=== PATIENT | male | born 1970 | race Caucasian/White ===

== ENCOUNTER 2023-06-20 17:29 | Emergency (ER) | payer SELFPAY ==
--- NOTE | 2023-06-20 19:17 | RAD REPORT ---
EXAM DESCRIPTION: US - Abdomen Exam Limited - 06/20/2023 7:05 pm CLINICAL HISTORY: ABD PAIN COMPARISON: No comparisons TECHNIQUE: Sonographic grayscale and color flow images of the right upper abdominal quadrant were obtained. FINDINGS: The gallbladder demonstrates no gallstones. No pericholecystic fluid or gallbladder wall t hickening. The common bile duct is normal measuring 3 mm. The liver demonstrates no findings of intrahepatic biliary dilatation. IMPRESSION: Normal right upper quadrant ultrasound.
[2023-06-20] MEDS ORDERED: MORPHINE 4 MG/ML SYR ONE (19:38)
[2023-06-20] MEDS ORDERED: ONDANSETRON 4 MG/2 ML VIAL ONE (19:38)
[2023-06-20] MEDS ORDERED: NA CHLORIDE 0.9% 1,000 ML ONE (19:38)
[2023-06-20 19:54] LABS: Absolute Lymphocytes (CBC) 2.9 K/uL (0.7-4.9); Lymphocytes % 26.3 % (15.3-44.8); MCV 87.9 fL (80-100); MPV 7.8 fL (7.6-11.3); Platelets 319 thou/uL (152-406); RBC Red Blood Cell Count 5.11 M/uL (4.33-5.43)
[2023-06-20 20:07] LABS: Specific Gravity > 1.030 (1.005-1.030); Urine Bacteria None Seen /HPF (<20); Urine Bilirubin NEGATIVE (Negative); Urine Blood Negative (Negative); Urine Clarity Extremely Turbid (Clear); Urine Color Yellow (Yellow); Urine Glucose NEGATIVE (Negative); Urine Mucus 4+ /HPF (None Seen); Urine Protein 1+ (Negative); Urine RBC <5 /HPF (None Seen); Urine Urobilinogen 2+ (Normal); Urine pH 5.5 (5.0-7.0)
[2023-06-20 20:19] LABS: Albumin 3.3 g/dL (3.4-5.0); Bilirubin Total 0.7 mg/dL (0.2-1.0); Potassium 3.8 mEq/L (3.5-5.1); Protein, Total 7.2 g/dL (6.4-8.2)
--- NOTE | 2023-06-20 21:12 | RAD REPORT ---
EXAM DESCRIPTION: CT - Abdomen Pelvis W Contrast - 06/20/2023 8:36 pm CLINICAL HISTORY: ABD PAIN COMPARISON: No comparisons TECHNIQUE: Thin cut axial CT imaging of the abdomen and pelvis was performed following intravenous a dministration of 100 mL Isovue 300. Multiplanar reformats were generated and reviewed. All CT scans are performed using dose optimization technique as appropriate and may include automated exposure control or mA/KV adjustment according to patient size. FINDINGS: No suspicious findings in the lung bases. The liver, spleen, adrenal glands, and pancreas show no suspicious findings. Gallbladder and biliary tree are also without suspicious finding. Symmetric renal function is seen with no hydronephrosis or suspicious renal mass. Segmental distal small bowel dilation, with segments of mucosal hyperenhancement along the nondistend ed loops. No focal transition point. No free air, free fluid or inflammatory stranding. No hernia, ma ss or bulky lymphadenopathy. The urinary bladder is suboptimally distended limiting evaluation, with mild wall prominence favored to relate to nondistention. No suspicious bony findings. IMPRESSION: Findings suggestive of small bowel ileus with segments of mucosal small bowel hyperenhan cement along the nondistended loops, suggestive of enteritis.
--- NOTE | 2023-06-20 21:32 | EDPHYS ---
Physician Documentation [facility] Name: Flaco Duarte Age: 52 yrs Sex: Male : 1970 Arrival Date: 06/20/2023 Time: 17:29 Bed 26 Private MD: ED Physician Eleazar Galarza HPI: 06/20 18:28 This 52 yrs old Male presents to ER via Ambulatory with complaints of Abdominal Pain, rt Nausea. 18:28 Patient presents to the ED with epigastric to right upper quadrant pain for the past rt week. Initially started after eating pizza. The patient states that the pain was originally intermittent in nature, now is constant. He reports some nausea with vomiting, denies hematemesis, hematochezia, melena. Denies other acute complaints at this time, symptoms are moderate in severity, aching nature, nonradiating, no other aggravating or elevating factors.. Historical: - Allergies: 18:00 No Known Allergies; mb9 - Home Meds: 18:00 Depakote Oral [Active]; mb9 - PMHx: 18:00 Bipolar disorder; mb9 - PSHx: 18:00 None; mb9 - Immunization history:: Adult Immunizations up to date. - Social history:: Smoking status: Patient reports the use of cigarette tobacco products, smokes one pack cigarettes per day. - Family history:: not pertinent. ROS: 18:28 Constitutional: Negative for fever, chills, and weight loss, Cardiovascular: Negative rt for chest pain, palpitations, and edema, Respiratory: Negative for shortness of breath, cough, wheezing, and pleuritic chest pain, Back: Negative for injury and pain, MS/Extremity: Negative for injury and deformity, Skin: Negative for injury, rash, and discoloration, Neuro: Negative for headache, weakness, numbness, tingling, and seizure, Psych: Negative for depression, anxiety, suicide ideation, homicidal ideation, and hallucinations, 18:28 Abdomen/GI: Positive for abdominal pain, nausea and vomiting, Exam: 18:28 Constitutional: This is a well developed, well nourished patient who is awake, alert, rt and in no acute distress. Head/Face: Normocephalic, atraumatic. Chest/axilla: Normal chest wall appearance and motion. Nontender with no deformity. No lesions are appreciated. Cardiovascular: Regular rate and rhythm with a normal S1 and S2. No gallops, murmurs, or rubs. Normal PMI, no JVD. No pulse deficits. Respiratory: Lungs have equal breath sounds bilaterally, clear to auscultation and percussion. No rales, rhonchi or wheezes noted. No increased work of breathing, no retractions or nasal flaring. Skin: Warm, dry with normal turgor. Normal color with no rashes, no lesions, and no evidence of cellulitis. MS/ Extremity: Pulses equal, no cyanosis. Neurovascular intact. Full, normal range of motion. Neuro: Awake and alert, GCS 15, oriented to person, place, time, and situation. Cranial nerves II-XII grossly intact. Motor strength 5/5 in all extremities. Sensory grossly intact. Cerebellar exam normal. Normal gait. Psych: Awake, alert, with orientation to person, place and time. Behavior, mood, and affect are within normal limits. 18:28 Abdomen/GI: Tenderness to the epigastrium, right upper quadrant without rebound, guarding, distention, Vital Signs: 17:57 BP 137 / 99; Pulse 88; Resp 16; Temp 97.7; Pulse Ox 100% ; Weight 104.33 kg; Height 5 mb9 ft. 11 in. ; Pain 9/10; 19:34 BP 128 / 92; Pulse 58; Resp 16 S; Pulse Ox 99% on R/A; cm10 20:15 BP 117 / 76; Pulse 60; Resp 16 S; Pulse Ox 98% on R/A; cm10 21:30 BP 114 / 86; Pulse 53; Resp 18 S; Pulse Ox 100% on R/A; cm10 17:57 Body Mass Index 32.08 (104.33 kg, 180.34 cm) mb9 17:57 Pain Scale: Adult mb9 MDM: 18:04 Patient medically screened. rt 21:47 Differential diagnosis: Ileus, bowel obstruction, pancreatitis, cholecystitis. Data rt reviewed: vital signs, nurses notes, lab test result(s), radiologic studies. Consideration of Admission/Observation Escalation of care including admission/observation considered. Recommended patient be admitted to the hospital for ileus, he states that he strongly does not wish to in the hospital, will prescribe Reglan. Patient is his risk and benefits, has decision-making capacity. Return for worsening symptoms or he changes his mind regarding admission.. I considered the following discharge prescriptions or medication management in the emergency department Medications were administered in the Emergency Department. See MAR. Independent interpretation of the following test(s) in the Emergency Department CT Scan: My interpretation is No cholelithiasis, interpretation of CT scan images. Counseling: I had a detailed discussion with the patient and/or guardian regarding the historical points, exam findings, and any diagnostic results supporting the discharge/admit diagnosis, lab results, radiology results. Response to treatment: the patient's symptoms have markedly improved after treatment. 06/20 18:05 Order name: CBC with Diff; Complete Time: 20:30 rt 06/20 18:05 Order name: CMP; Complete Time: 20:30 rt 06/20 18:05 Order name: Lipase; Complete Time: 20:30 rt 06/20 18:05 Order name: Urinalysis w/ reflexes; Complete Time: 20:30 rt 06/20 18:05 Order name: CT Abd/Pelvis - IV Contrast Only; Complete Time: 21:15 rt 06/20 18:05 Order name: US Abdomen Limited; Complete Time: 20:30 rt 06/20 18:06 Order name: IV Saline Lock; Complete Time: 19:44 rt 06/20 18:06 Order name: Labs collected and sent; Complete Time: 19:44 rt Administered Medications: 19:44 Drug: NS 0.9% IV 1000 ml IV at 1 bolus Per protocol; 1000 mL bolus Route: IV; Rate: 1 cm10 bolus; Site: left antecubital; 21:39 Follow up: Response: No adverse reaction; IV Status: Completed infusion; IV Intake: cm10 1000ml 19:44 Drug: Ondansetron IVP 4 mg IVP once; over 2 minutes Route: IVP; Site: left antecubital; cm10 21:39 Follow up: Response: No adverse reaction cm10 19:44 Drug: morphine IVP or IV 4 mg IVP once over 4 mins Route: IVP; Infused Over: 4 mins; cm10 Site: left antecubital; 21:39 Follow up: Response: No adverse reaction cm10 Disposition Summary: 06/20/23 21:32 Discharge Ordered Notes: Location: Home rt Problem: new rt Symptoms: have improved rt Condition: Stable rt Diagnosis - Ileus, unspecified rt Followup: rt - With: Leon, Obed, MD - When: 2 - 3 days - Reason: Discharge Instructions: - Discharge Summary Sheet rt - Ileus rt Forms: - Medication Reconciliation Form rt - Thank You Letter rt - Antibiotic Education rt - Prescription Opioid Use rt - Patient Portal Instructions rt - Leadership Thank You Letter rt Prescriptions: - Reglan 10 mg Oral Tablet - take 1 tablet ORAL route every 6 hours take 30 minutes before meals and at rt bedtime; 20 tablet; Refills: 0, Product Selection Permitted Signatures: Dispatcher [employer] Ileana Roberts RN RN mb9 Eleazar Galarza MD MD rt Maylin Camarillo RN RN cm10 Corrections: (The following items were deleted from the chart) 18:00 18:00 PMHx: None; sekou mb9
--- NOTE | 2023-06-20 21:32 | ER ---
Nurse's Notes [facility] Name: Flaco Duarte Age: 52 yrs Sex: Male : 1970 Arrival Date: 06/20/2023 Time: 17:29 Bed 26 Private MD: Diagnosis: Ileus, unspecified Presentation: 06/20 17:57 Chief complaint: Patient states: "For the past week, my stomach feels like someone is mb9 twisting it. I can't lay down or get comfortable. I've been vomiting and feel nauseous. it's tender all over". Coronavirus screen: Vaccine status: Patient reports receiving the 2nd dose of the covid vaccine. Ebola Screen: No symptoms or risks identified at this time. Initial Sepsis Screen: Does the patient meet any 2 criteria? No. Patient's initial sepsis screen is negative. Does the patient have a suspected source of infection? No. Patient's initial sepsis screen is negative. Risk Assessment: Do you want to hurt yourself or someone else? Patient reports no desire to harm self or others. Onset of symptoms was 2022. 17:57 Method Of Arrival: Ambulatory [facility] 17:57 Acuity: DEYSI 3 mb9 Triage Assessment: 18:00 General: Appears uncomfortable, Behavior is cooperative. Pain: Complains of pain in mb9 abdomen Pain does not radiate. Pain currently is 9 out of 10 on a pain scale. Quality of pain is described as throbbing, Is continuous, Aggravated by eating, drinking. EENT: No signs and/or symptoms were reported regarding the EENT system. Neuro: Islas Agitation-Sedation Scale (RASS): 0 - Alert and Calm Level of Consciousness is awake, alert, obeys commands, Oriented to person, place, time, situation, Appropriate for age. Cardiovascular: Patient's skin is warm and dry. Respiratory: Airway is patent Respiratory effort is even, unlabored, Respiratory pattern is regular, symmetrical. GI: Abdomen is round distended, Abd is soft Abdomen is tender to palpation in right upper quadrant and left upper quadrant. : No signs and/or symptoms were reported regarding the genitourinary system. Derm: Skin is pink, warm \\T\\ dry. Musculoskeletal: Range of motion: intact in all extremities. Historical: - Allergies: 18:00 No Known Allergies; mb9 - Home Meds: 18:00 Depakote Oral [Active]; mb9 - PMHx: 18:00 Bipolar disorder; mb9 - PSHx: 18:00 None; mb9 - Immunization history:: Adult Immunizations up to date. - Social history:: Smoking status: Patient reports the use of cigarette tobacco products, smokes one pack cigarettes per day. - Family history:: not pertinent. Screenin:14 [facility] ED Fall Risk Assessment (Adult) History of falling in the last 3 months, cm10 including since admission No falls in past 3 months (0 pts) Confusion or Disorientation No (0 pts) Intoxicated or Sedated No (0 pts) Impaired Gait No (0 pts) Mobility Assist Device Used No (0 pt) Altered Elimination No (0 pt) Score/Fall Risk Level 0 - 2 = Low Risk Oriented to surroundings, Maintained a safe environment, Hourly rounding (assess needs \\T\\ fall precautionary measures) done. Abuse screen: Denies threats or abuse. Denies injuries from another. Nutritional screening: No deficits noted. Tuberculosis screening: No symptoms or risk factors identified. Assessment: 18:01 Reassessment: see triage assessment. mb9 20:14 Reassessment: Patient appears in no apparent distress at this time. Patient and/or cm10 family updated on plan of care and expected duration. Pain level reassessed. Patient is alert, oriented x 3, equal unlabored respirations, skin warm/dry/pink. 21:27 Reassessment: Dr. Galarza speaking with patient in regards to admission and pt cm10 states that he would like to go home. 21:38 Reassessment: Patient appears in no apparent distress at this time. Patient and/or cm10 family updated on plan of care and expected duration. Pain level reassessed. Patient is alert, oriented x 3, equal unlabored respirations, skin warm/dry/pink. Patient states feeling better. Patient states symptoms have improved. Vital Signs: 17:57 BP 137 / 99; Pulse 88; Resp 16; Temp 97.7; Pulse Ox 100% ; Weight 104.33 kg; Height 5 mb9 ft. 11 in. ; Pain 9/10; 19:34 BP 128 / 92; Pulse 58; Resp 16 S; Pulse Ox 99% on R/A; cm10 20:15 BP 117 / 76; Pulse 60; Resp 16 S; Pulse Ox 98% on R/A; cm10 21:30 BP 114 / 86; Pulse 53; Resp 18 S; Pulse Ox 100% on R/A; cm10 17:57 Body Mass Index 32.08 (104.33 kg, 180.34 cm) mb9 17:57 Pain Scale: Adult mb9 ED Course: 17:32 Patient arrived in ED. im 17:38 Eleazar Galarza MD is Attending Physician. rt 17:59 Triage completed. mb9 17:59 Arm band placed on. mb9 19:07 US Abdomen Limited In Process Unspecified. EDMS 19:22 Maylin Camarillo, ISHA is Primary Nurse. cm10 19:45 CBC with Diff Sent. cm10 19:45 CMP Sent. cm10 19:45 Lipase Sent. cm10 19:45 Urinalysis w/ reflexes Sent. cm10 19:45 Initial lab(s) drawn, by pr, sent to lab. Urine collected: clean catch specimen. cm10 Inserted saline lock: 20 gauge in left antecubital area, using aseptic technique. Blood collected. Missed attempt(s): 20 gauge in right antecubital area. Bleeding controlled, band aid applied, catheter tip intact. 20:14 Patient has correct armband on for positive identification. Bed in low position. Call cm10 light in reach. Side rails up X2. Provided Education on: ER process and procedures. . 20:38 CT Abd/Pelvis - IV Contrast Only In Process Unspecified. EDMS 20:[address]. cm10 21:27 ED physician to see patient. cm10 21:31 Obed Leon MD is Referral Physician. rt 21:51 No provider procedures requiring assistance completed. IV discontinued, intact, cm10 bleeding controlled, No redness/swelling at site. Administered Medications: 19:44 Drug: NS 0.9% IV 1000 ml IV at 1 bolus Per protocol; 1000 mL bolus Route: IV; Rate: 1 cm10 bolus; Site: left antecubital; 21:39 Follow up: Response: No adverse reaction; IV Status: Completed infusion; IV Intake: cm10 1000ml 19:44 Drug: Ondansetron IVP 4 mg IVP once; over 2 minutes Route: IVP; Site: left antecubital; cm10 21:39 Follow up: Response: No adverse reaction cm10 19:44 Drug: morphine IVP or IV 4 mg IVP once over 4 mins Route: IVP; Infused Over: 4 mins; cm10 Site: left antecubital; 21:39 Follow up: Response: No adverse reaction cm10 Medication: 20:14 VIS not applicable for this client. cm10 Intake: 21:39 IV: 1000ml; Total: 1000ml. cm10 Outcome: 21:32 Discharge ordered by . rt 21:51 Discharged to home via wheelchair, with friend, cm10 21:51 Condition: good 21:51 Discharge instructions given to patient, Instructed on discharge instructions, follow up and referral plans. medication usage, Demonstrated understanding of instructions, follow-up care, medications, Prescriptions given X 1, 21:52 Patient left the ED. cm10 Signatures: Dispatcher [employer] Ileana Roberts RN RN Eleazar Hinojosa MD MD rt Yesenia Todd Clarissa, RN RN cm10 Corrections: (The following items were deleted from the chart) 18:00 18:00 PMHx: None; sekou sapp
[2023-06-20 23:40] VITALS: TEMP 97.7
[2023-06-20 23:53] VITALS: BP 114/86; O2SAT 100
== END 2023-06-20 21:52 | disposition home or self-care (01) ==
LOC: ER 17:29
DX: K56.7 Ileus, unspecified (principal)
CPT/HCPCS: 36415; 74177; 76705; 80053; 81001; 83690; 85025; 96361; 96374; 96375; 99285; J2405; J7030; Q9967

== ENCOUNTER 2024-08-03 10:53 | Emergency (ER) | payer OTHER ==
--- OUTSIDE RECORDS SUMMARY | 2024-08-03 10:56 | XMS REPORT | Continuity of Care Document ---
Author Name Unknown Address [address] [facility] [address] [place] [address] [facility] thconnect Address [address] [facility] 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 Phone MD YASIR WALL Primary Care Physician KIRIT LINTON Attending Clinician UnavailGRACIE Tripathi Attending Clinician Unavailab DONAL Quiroz Attending Clinician Unavailable AMBREEN_FARHANA Attending Clinician Unavailable KIRSTIE AUSTIN Attending Clinician Unavailable MILLY TAMAYO Attending Clinician Unavailable AMBREEN_FARHANA Admitting Clinician Unavailable Payers Payer Name Policy Type Policy Number Effective Date Expirati on Date Source Problems Condition Name Condition Details Condition Category Status Onset Date Resolution Date Last Treatment Date Treating Clinician Comments Source Abdominal pain Problem [facility] Dental caries Problem [facility] Depression Problem [facility] Foreign body of right cornea Problem [facility] Infected dental caries Problem [facility] Laceration of multiple sites of upper extremity [facility] Lightheade dness [facility] Methamphet amine abuse Problem [facility] Nausea Problem [facility] Lung nodule Problem [facility] Allergies, Adverse Reactions, Alerts Allergy Name Allergy Type Status Severity Reaction(s) Onset Date Inactive Date Treating Clinician Comments Source No known drug allergy Nixon neo allergy Active 11-17 00:00: 00 [facility] Social History Social Habit Start Date Stop Date Quantity Comments Source History of tobacco use [facility] Smoking Status Start Date Stop Date Source Smokes tobacco daily (finding) 2019-03-01 14:00:00 [facility] Medications Ordered Medication Name Filled Medication Name Start Date Stop Date Current Medication? Ordering Clinician Indication Dosage Frequency Signature (SIG) Comments Components Source Omeprazole (Omeprazole 20 Mg *) [address] Omeprazole (Omeprazole 20 Mg *) [address] 03-12 13:28: 00 Yes 1 [facility] Amoxicillin /Clavulanat e Potassium (Augmentin *) 875 Mg TAB Amoxicillin /Clavulanat e Potassium (Augmentin *) 875 Mg TAB 03-01 14:09: 00 Yes 1 [facility] Vital Signs Vital Name Observation Time Observation Value Comments S ource Weight 2024-06-17 17:15:00 94.571475 kg [facility] BMI (Body Mass Index) 2024-06-17 17:15:00 29.0 kg/m2 [facility] Height 2024-06-17 17:15:00 180.218532 cm [facility] Encounters Start Date/Time End Date/Time Encounter Type Admission Type Attending Clinicians Care Facility Care Department Encounter ID Source 2023-08-16 16:22:26 Inpatient [facility] [id number] [facility] 2023-02-09 10:29:36 Inpatient [facility] [id number] [facility] 2023-01-25 09:41:28 Inpatient [facility] [id number] [facility] 2022-12-02 13:15:43 Inpatient [facility] [id number] [facility] 2022-06-14 14:30:03 Inpatient [facility] [id number] [facility] 2022-06-10 10:32:38 Inpatient [facility] [id number] [facility] 2022-03-29 14:57:51 Inpatient [facility] [id number] [facility] 2024-06-17 17:02:00 2024-06-17 19:20:00 Emergency ER KIRIT LINTON [facility] [id number] [facility] 2024-06-17 17:02:00 2024-06-17 19:20:00 Departed Emergency Room [facility] [id number] [facility] 2024-03-12 10:51:00 2024-03-12 13:35:00 Emergency ER GRACIE CURTIS [facility] [id number] [facility] 2023-09-20 13:07:00 2023-09-20 13:07:00 Outpatient SELF/OTHER INDIVIDUAL DONAL QUINN [facility] [id number] [facility] 2022-01-01 09:31:00 2022-01-01 09:31:00 Outpatient AMBREEN_DERRELL BEE [facility] [id number] [facility] 2019-03-01 13:50:00 2019-03-01 15:02:00 Emergency ER NORMAN RUKHSANARonda [facility] [id number] [facility] 2017-12-16 15:43:00 2017-12-16 23:40:00 Emergency ER KIRSTIE AUSTIN [facility] [id number] [facility] 2015-09-24 18:18:00 2015-09-24 20:43:00 Emergency ER MILLY TAMAYO [facility] [id number] [facility] Results Test Description Test Time Test Comments Results Result Co mments Source [facility] CtrUrine examination for white blood cells (WBC) 2024-06-17 18:18:00* Test Item Value Reference Range Interpretation Comme nts Urine WBC (test code = 406181463) 0-2 [facility] CtrAutomated epithelial cells count in urine sediment (number/area)2024-06-17 18:18:00* Test Item Value Reference Range Interpretation Comme nts Urine Epithelial Cells (test code = 42803-3) 0-2 [facility] CtrBacteria detection in urine sediment by light kjfmgyqjap6783-89-64 18:18:00* Test Item Value Reference Range Interpretation Comme nts Urine Bacteria (test code = 26919-9) None Seen [facility] CtrUrine casts detection by automated method 2024-06-17 18:18:00* Test Item Value Reference Range Interpretation Comme nts Urine Casts (test code = 26268-8) 0-2 [facility] CtrColor of Urine by [id number] 18:13:00* Test Item Value Reference Range Interpretation Comme nts Urine Color (test code = 67162-3) Yellow [facility] CtrAppearance of [id number] 18:13:00* Test Item Value Reference Range Interpretation Comme nts Urine Appearance (test code = 5767-9) Clear [facility] xmzavgzgr5617-59-65 18:13:00* Test Item Value Reference Range Interpretation Comme nts Urine Glucose (UA) (test cod e = 2349-9) Negative [facility] CtrBilirubin [id number] 18:13:00* Test Item Value Reference Range Interpretation Comme nts Urine Bilirubin (test code = 042638621) Negative [facility] CtrKetones ri2647-12-02 18:13:00* Test Item Value Reference Range Interpretation Comme nts Urine Ketones (test code = 10108249) Negative [facility] CtrSpecific gravity of Urine by Automated test strip 2024-06-17 18:13:00* Test Item Value Reference Range Interpretation Comme nts Urine Specific Girard (test code = 82401-4) 1.016 [facility] blood leaglwrwy0696-09-20 18:13:00* Test Item Value Reference Range Interpretation Comme nts Urine Blood (test code = 50744-1) Negative [facility] CtrpH [id number] 18:13:00* Test Item Value Reference Range Interpretation Comme nts Urine pH (test code = 2756-5) 5.500 [facility] CtrProtein [id number] 18:13:00* Test Item Value Reference Range Interpretation Comme nts Urine Protein (test code = 74903686) Negative [facility] CtrUrobilinogen, urine, ne1573-93-00 18:13:00* Test Item Value Reference Range Interpretation Comme nts Urine Urobilinogen (test cod e = 532292571) 1.0 [facility] CtrUrine nitrate rofauyiyk6739-17-48 18:13:00* Test Item Value Reference Range Interpretation Comme nts Urine Nitrate (test code = 82213-4) Negative [facility] leukocyte esterase kdlyokukv9928-80-51 18:13:00* Test Item Value Reference Range Interpretation Comme nts Urine Leukocyte Esterase (te st code = 012256897) Negative [facility] CtrSerum or plasma cardiac troponin I panel by high sensitivity ogsmka7925-67-05 18:04:00* Test Item Value Reference Range Interpretation Comme nts Troponin T High Sensitivity (test code = 24350-1) < 6.0 [facility] CtrBilirubin wlskx9881-97-20 18:02:00* Test Item Value Reference Range Interpretation Comme nts Total Bilirubin (test code = ZPE6912) 0.8 [facility] CtrSerum or plasma urea nitrogen measurement (mass/volume)2024-06-17 18:02:00* Test Item Value Reference Range Interpretation Comme nts Blood Urea Nitrogen (test co de = 3094-0) 9 [facility] [id number] 18:02:00* Test Item Value Reference Range Interpretation Comme nts Aspartate Amino Transf (AST/ SGOT) (test code = YEQ8236) 16 [facility] CtrCreatinine nngxk8249-04-77 18:02:00* Test Item Value Reference Range Interpretation Comme nts Creatinine (test code = 729412119) 0.96 [facility] CtrEstimated glomerular filtration rate (GFR) adzteojkqxjmz6863-99-59 18:02:00* Test Item Value Reference Range Interpretation Comme nts Glomerular Filtration Rate C alc (test code = 428338208) > 60.00 [facility] CtrBUN/creatinine cuuyd5167-07-76 18:02:00* Test Item Value Reference Range Interpretation Comme nts BUN/Creatinine Ratio (test c ode = 50472942) 9.4 [facility] CtrBody fluid potassium ikychzyfjsl8816-71-02 18:02:00* Test Item Value Reference Range Interpretation Comme nts Potassium Level (test code = 2821-7) 4.0 [facility] VzjGT28467-40-80 18:02:00* Test Item Value Reference Range Interpretation Comme nts Carbon Dioxide Level (test c ode = 66156851) 25 [facility] CtrAnion gap rcwrqtbrjff8195-92-00 18:02:00* Test Item Value Reference Range Interpretation Comme nts Anion Gap (test code = 75380109) 15.0 [facility] CtrCalcium vmqra2622-36-53 18:02:00* Test Item Value Reference Range Interpretation Comme nts Calcium Level (test code = 75216435) 9.4 [facility] WodNkevjkhhk7281-22-57 18:02:00* Test Item Value Reference Range Interpretation Comme nts Magnesium Level (test code = 80310763) 2.1 [facility] CtrGlobulin ded5797-61-07 18:02:00* Test Item Value Reference Range Interpretation Comme nts Globulin (test code = 816248975) 3.2 [facility] CtrALT (SGPT) ser/nfoi3657-09-57 18:02:00* Test Item Value Reference Range Interpretation Comme nts Alanine Aminotransferase (AL T/SGPT) (test code = 1742-6) 18 [facility] XwnFjkbny4049-90-98 18:02:00* Test Item Value Reference Range Interpretation Comme nts Lipase (test code = 68915557) 14 [facility] CtrALP ser/rxra9511-19-68 18:02:00* Test Item Value Reference Range Interpretation Comme [facility] Total Alkaline Phosphatase ( test code = 6768-6) 127 [facility] CtrAbsolute eosinophil qmbwg1972-30-26 17:43:00* Test Item Value Reference Range Interpretation Comme [facility] Eosinophils # (Auto) (test c ode = UXH2556) 0.34 [facility] CtrRBC kchdf2675-82-10 17:43:00* Test Item Value Reference Range Interpretation Comme [facility] Red Blood Count (test code = 46965581) 5.06 [facility] OiuDaqwxqdxgg1970-23-64 17:43:00* Test Item Value Reference Range Interpretation Comme [facility] Hematocrit (test code = 22208520) 46.3 [facility] CtrMCV (mean corpuscular volume) determination 2024-06-17 17:43:00* Test Item Value Reference Range Interpretation Comme [facility] Mean Corpuscular Volume (daniel t code = 82006-1) 91.5 [facility] CtrMean corpuscular hemoglobin (MCH) determination 2024-06-17 17:43:00* Test Item Value Reference Range Interpretation Comme [facility] Mean Corpuscular Hemoglobin (test code = 85865016) 29.4 [facility] corpuscular hemoglobin concentration (MCHC) pevezlpfqwnue5097-22-05 17:43:00* Test Item Value Reference Range Interpretation Comme [facility] Mean Corpuscular Hemoglobin Concent (test code = 30097995) 32.2 [facility] CtrErythrocyte distribution width coefficient of onofumgmi7088-84-70 17:43:00* Test Item Value Reference Range Interpretation Comme [facility] Red Cell Distribution Width (test code = 07960617) 13.5 [facility] CtrPlatelet nelyh1740-73-94 17:43:00* Test Item Value Reference Range Interpretation Comme [facility] Platelet Count (test code = 10920718) 395 [facility] CtrMean platelet gkcvjd9078-46-56 17:43:00* Test Item Value Reference Range Interpretation Comme [facility] Mean Platelet Volume (test c ode = 02986179) 10.2 [facility] CtrNeutrophils seg % vit7317-20-15 17:43:00* Test Item Value Reference Range Interpretation Comme nts Neutrophils (%) (Auto) (test code = 26165-2) 61.0 [facility] CtrAbsolute immature granulocyte vxofz2178-38-73 17:43:00* Test Item Value Reference Range Interpretation Comme nts Absolute Immature Granulocyt e (auto (test code = 56002-8) 0.03 [facility] CtrBlood band neutrophils count (number/volume) 2024-06-17 17:43:00* Test Item Value Reference Range Interpretation Comme nts Neutrophils # (Auto) (test c ode = 00690-4) 5.89 [facility] CtrAbsolute lymphocyte rqlaa6360-74-31 17:43:00* Test Item Value Reference Range Interpretation Comme nts Lymphocytes # (Auto) (test c ode = 79028-1) 2.80 [facility] CtrAbsolute basophil fkcum1203-20-60 17:43:00* Test Item Value Reference Range Interpretation Comme nts Basophils # (Auto) (test cod e = 87726327) 0.07 [facility] CtrAbsolute NRBC mezwv7893-37-18 17:43:00* Test Item Value Reference Range Interpretation Comme nts Nucleated Red Blood Cells # (test code = 817332047) 0 [facility] C[facility] Notes <thead> Date/Time Note Provider Source [facility] Ezb1044-86-25 04:39:49 Follow up with your primary care doctor and be sure to acquire your medical records from [place] as discussed. 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 You may also try Prilosec OTC or Maalox if the Pepcid is not helping. Avoid spicy, fried and fatty foods as well. Return to the ER for any new or concerning symptoms. Future Tests Future scheduled test information is unavailable Pending Tests Pending diagnostic test information is unavailable Future Visits Future appointment information is unavailable Referrals to Other Providers <thead> Reason for Referral Referral Start Date Provider Provider Contact Information Provider Address NO PHYSICIAN NO PHYSICIAN YASIR WALL MD Work Phone: [place] [phone] NO PHYSICIAN NO PHYSICIAN Future Procedures <thead> Procedure Name Ordered Date Scheduled Date NPO except Meds March 12, 2024 11:13am March 12, 2024 11:12am Insert Peripheral IV Access March 12, 2024 11:13 am March 12, 2024 11:12am Cardiac, BP, Pulse Ox Monitor March 12, 2024 11: 13am March 12, 2024 11:12am Remove Clothing/Place in Gown March 12, 2024 11: 13am March 12, 2024 11:12am VS - Adult March 12, 2024 11:13am March 12, 2024 11:12am Orthostatic VS June 17, 2024 5:28pm June 17, 2024 Electrocardiogram, Complete June 17, 2024 5: 28pm June 17, 2024 5:25pm Future Medications Future medication information is unavailable Patient Instructions <tbody> Dental Caries, Adult, Easy-t o-Read Dental Pain, Fjis-tw-Zlts Abdominal Pain, Adult, Easy- to-Read Pulmonary Nodule, Easy-to-Re ad Nausea, Adult, Zhvq-ke-Meho Eye Foreign Body, Easy-to-Re ad [facility]
[2024-08-03] MEDS ORDERED: METOCLOPRAMIDE 10 MG/2mL INJ ONE (11:40)
[2024-08-03] MEDS ORDERED: KETOROLAC 30 MG/ML INJ ONE (11:40)
[2024-08-03] MEDS ORDERED: FAMOTIDINE 20 MG/2 ML VIAL IV ONE (11:40)
[2024-08-03 12:00] LABS: Absolute Eosinophils 0.2 K/uL (0-0.5); Absolute Lymphocytes (CBC) 2.3 K/uL (0.7-4.9); Absolute Monocytes 0.5 K/uL (0.1-1.3); Absolute Neutrophil 5.4 K/uL (1.8-8.0); Basophils % 0.6 % (0-1.3); Eosinophils % 2.1 % (0-4.4); Hematocrit 45.3 % (39.6-49.0); Lymphocytes % 27.6 % (15.3-44.8); MCH 29.9 pg (27.0-35.0); MCHC 33.1 g/dL (32.0-36.0); MCV 90.2 fL (80-100); MPV 8.3 fL (7.6-11.3); Monocytes % 6.2 % (3.3-12.3); Neutrophils % 63.5 % (41.7-73.7); Platelets 306 thou/uL (152-406); RBC Red Blood Cell Count 5.03 M/uL (4.33-5.43); Red Cell Distribution Width 13.7 % (12.1-15.2)
[2024-08-03 12:16] LABS: ALT/SGPT 18 U/L (16-61); Albumin 3.4 g/dL (3.4-5.0); Albumin/Globulin Ratio 0.9 (1.1-1.8); Alkaline Phosphatase 95 U/L (45-117); Anion Gap 6.8 mEq/L (5.0-15.0); BUN Blood Urea Nitrogen 14 mg/dL (7-18); Bicarbonate 26 mEq/L (21-32); Bilirubin Total 0.9 mg/dL (0.2-1.0); Globulin 3.6 g/dL (2.3-3.5); Glomerular Filtration Rate 95 ml/min (=/>90); Glucose Level 110 mg/dL (74-106); Lipase 32 U/L (13-75); Potassium 3.8 mEq/L (3.5-5.1); Sodium Level 138 mEq/L (136-145); Troponin High Sensitivity 4.9 pg/mL (<58.9)
[2024-08-03 12:24] LABS: AST/SGOT < 10 U/L (15-37)
--- NOTE | 2024-08-03 12:35 | RAD REPORT ---
EXAMINATION: US Abdomen Exam Limited CLINICAL HISTORY: [facility] MAIN N GB eval Bed Name: COMPARISON: 06/02/2024 CT abdomen and pelvis TECHNIQUE: Limited upper abdominal grayscale and color flow sonographic images. FINDINGS: Gallbladder: Normal. Bile ducts: No intrahepatic or extrahepatic biliary dilatation. Common bile duct measures 0.4 mm. Liver: Visualized portions of the liver demonstrate normal echogenicity with no suspicious findings. Fluid: No ascites. IMPRESSION: No abnormalities on right upper quadrant ultrasound.
--- NOTE | 2024-08-03 12:46 | EDPHYS ---
Physician Documentation [facility] Name: Flaco Duarte Age: 53 yrs Sex: Male : 1970 Arrival Date: 08/03/2024 Time: 10:53 Bed 17 Private MD: ED Physician Pato Hamilton HPI: 08/03 11:34 This 53 yrs old Male presents to ER via Ambulatory with complaints of Nausea, ec2 Dizziness - Chills. 11:34 Patient with history of chronic abdominal pain arrives today for upper abdominal pain ec2 along with nausea and chills. States that he had a bout where he had some nausea and chills this morning which is what prompted evaluation today. Patient reports he has had history of chronic abdominal pain has had CT imaging as well as ultrasonography and endoscopies recently all of which showed no definitive reason for his abdominal pain. Patient reports that he has "gallbladder inflammation".. Historical: - Allergies: 11:27 No Known Allergies; hb - Home Meds: 11:27 Depakote Oral [Active]; hb - PMHx: 11:27 Bipolar disorder; hb - Immunization history:: Adult Immunizations up to date. - Infectious Disease History:: Denies. - Social history:: Smoking status: Patient reports the use of cigarette tobacco products, smokes one pack cigarettes per day. ROS: 11:34 Constitutional: as per hpi ec2 Exam: 11:34 Constitutional: GEN: NAD Head: atraumatic Eyes: EOMI Ears: External ears are ec2 normal. CV: regular rate LUNGS: no respiratory distress ABD: non-distended, soft, tender in the epigastrium and right upper quadrant, not guarding, not rigid. SKIN: no evidence of rashes MSK: no evidence of trauma Vital Signs: 11:25 BP 127 / 79; Pulse 78; Resp 18; Temp 97.8(TE); Pulse Ox 98% on R/A; Weight 92.53 kg; hb Height 5 ft. 11 in. ; Pain 8/10; 12:42 BP 121 / 70; Pulse 56; Resp 16; Pulse Ox 98% on R/A; hb 11:25 Body Mass Index 28.45 (92.53 kg, 180.34 cm) hb 11:25 Pain Scale: Adult hb MDM: 11:14 Medical Screening Exam initiated ec2 11:34 Data reviewed: vital signs, nurses notes. ED course: Patient arrives today for upper ec2 abdominal pain as well as nausea and chills. Examination is remarkable for well-appearing nontoxic individuals otherwise in no acute distress with a reassuring examination. Will obtain lab work, ultrasound as well as EKG. Differential includes electrolyte disturbances, anemia, arrhythmia, cholecystitis, cholelithiasis.. 11:51 ED course: EKG independently reviewed and interpreted by me, shows normal sinus rhythm, ec2 rate of 64, no acute ST segment elevations, intervals are nonactionable, PVC noted.. 12:44 ED course: Ultrasound is unrevealing. Will discharge home have the patient follow-up ec2 with a GI doctor. No evidence of ACS. Doubt other process such as PE or dissection. Return precautions given.. 08/03 11:34 Order name: CBC with Diff; Complete Time: 12:08 ec2 08/03 11:34 Order name: CMP; Complete Time: 12:28 ec2 08/03 11:34 Order name: Lipase; Complete Time: 12:28 ec2 08/03 11:34 Order name: Troponin High Sensitivity; Complete Time: 12:28 ec2 08/03 11:34 Order name: US Abdomen Limited; Complete Time: 12:42 ec2 08/03 11:34 Order name: IV Saline Lock; Complete Time: 12:41 ec2 08/03 11:34 Order name: Labs collected and sent; Complete Time: 12:41 ec2 08/03 11:34 Order name: EKG - Nurse/Tech; Complete Time: 11:54 ec2 Administered Medications: 11:50 Drug: Famotidine IVP 20 mg IVP once; dilute with 10 mL 0.9% NaCl; give over 2 minutes hb Route: IVP; Site: right antecubital; 12:30 Follow up: Response: No adverse reaction hb 11:50 Drug: TORadol - Ketorolac IVP 15 mg IVP once Route: IVP; Site: right antecubital; hb 12:30 Follow up: Response: No adverse reaction hb 11:50 Drug: metoCLOPramide IVP 10 mg IVP once; over 1 to 2 minutes Route: IVP; Site: right hb antecubital; 12:30 Follow up: Response: No adverse reaction hb Disposition Summary: 08/03/24 12:45 Discharge Ordered Condition: Stable ec2 Diagnosis - Chronic Abdominal Pain ec2 - Nausea ec2 Followup: ec2 - With: Private Physician - When: - Reason: Re-evaluation by your physician Discharge Instructions: - Discharge Summary Sheet ec2 - Nausea, Adult ec2 Forms: - Medication Reconciliation Form ec2 - Antibiotic Education ec2 - Prescription Opioid Use ec2 - Patient Portal Instructions ec2 - Leadership Thank You Letter ec2 Prescriptions: - Reglan 10 mg Oral Tablet - take 1 tablet ORAL route every 6 hours take 30 minutes before meals and at ec2 bedtime; 20 tablet; Refills: 0, Product Selection Permitted Signatures: Dispatcher [employer] EDMS Meggan Simeon RN RN Pato Hamilton MD MD ec2 Corrections: (The following items were deleted from the chart) 11:34 11:34 CBC+H.LAB.BRZ ordered. EDMS EDMS 11:34 11:34 COMPREHENSIVE METABOLIC PANEL+C.LAB.BRZ ordered. EDMS EDMS 11:34 11:34 LIPASE+C.LAB.BRZ ordered. EDMS EDMS 11:34 11:34 Urinalysis+U.LAB.BRZ ordered. EDMS EDMS 11:34 11:34 Troponin High Sensitivity+C.LAB.BRZ ordered. EDMS EDMS
--- NOTE | 2024-08-03 12:46 | ER ---
Nurse's Notes [facility] Name: Flaco Duarte Age: 53 yrs Sex: Male : 1970 Arrival Date: 08/03/2024 Time: 10:53 Bed 17 Private MD: Diagnosis: Chronic Abdominal Pain;Nausea Presentation: 08/03 11:25 Chief complaint: RUQ pain x 2 months that became worse 2 days ago and nausea since this morning. Coronavirus screen: At this time, the client does not indicate any symptoms associated with coronavirus-19. Ebola Screen: No symptoms or risks identified at this time. Initial Sepsis Screen: Does the patient meet any 2 criteria? No. Patient's initial sepsis screen is negative. Does the patient have a suspected source of infection? No. Patient's initial sepsis screen is negative. Risk Assessment: Do you want to hurt yourself or someone else? Patient reports no desire to harm self or others. Onset of symptoms was May 2024. 11:25 Method Of Arrival: Ambulatory hb 11:25 Acuity: DEYSI 3 hb Historical: - Allergies: 11:27 No Known Allergies; hb - Home Meds: 11:27 Depakote Oral [Active]; hb - PMHx: 11:27 Bipolar disorder; hb - Immunization history:: Adult Immunizations up to date. - Infectious Disease History:: Denies. - Social history:: Smoking status: Patient reports the use of cigarette tobacco products, smokes one pack cigarettes per day. Screenin:[address] [facility] ED Fall Risk Assessment (Adult) History of falling in the last 3 months, hb including since admission No falls in past 3 months (0 pts) Confusion or Disorientation No (0 pts) Intoxicated or Sedated No (0 pts) Impaired Gait No (0 pts) Mobility Assist Device Used No (0 pt) Altered Elimination No (0 pt) Score/Fall Risk Level 0 - 2 = Low Risk Oriented to surroundings, Maintained a safe environment, Educated pt \T\ family on fall prevention, incl call for assistance when getting out of bed. Abuse screen: Denies threats or abuse. Denies injuries from another. Nutritional screening: No deficits noted. Tuberculosis screening: No symptoms or risk factors identified. Assessment: 11:27 General: Appears in no apparent distress. uncomfortable, Behavior is calm, cooperative. hb Pain: Pain currently is 8 out of 10 on a pain scale. Neuro: Level of Consciousness is awake, alert, obeys commands, Oriented to person, place, time, situation. Cardiovascular: Patient's skin is warm and dry. Respiratory: Respiratory effort is even, unlabored, Respiratory pattern is regular, symmetrical. GI: Reports upper abdominal pain, nausea. : No signs and/or symptoms were reported regarding the genitourinary system. EENT: No signs and/or symptoms were reported regarding the EENT system. Derm: Skin is pink, warm \T\ dry. Musculoskeletal: No signs and/or symptoms reported regarding the musculoskeletal system. 12:44 Reassessment: Patient appears in no apparent distress at this time. Patient and/or hb family updated on plan of care and expected duration. Pain level reassessed. Patient is alert, oriented x 3, equal unlabored respirations, skin warm/dry/pink. Vital Signs: 11:25 BP 127 / 79; Pulse 78; Resp 18; Temp 97.8(TE); Pulse Ox 98% on R/A; Weight 92.53 kg; hb Height 5 ft. 11 in. ; Pain 8/10; 12:42 BP 121 / 70; Pulse 56; Resp 16; Pulse Ox 98% on R/A; hb 11:25 Body Mass Index 28.45 (92.53 kg, 180.34 cm) hb 11:25 Pain Scale: Adult hb ED Course: 10:58 Patient arrived in ED. ra3 10:59 Pato Hamilton MD is Attending Physician. ec2 11:27 Triage completed. hb 11:27 Arm band placed on. hb 11:28 Patient has correct armband on for positive identification. Placed in gown. Bed in low hb position. Call light in reach. Provided Education on: use of call light . 11:28 No provider procedures requiring assistance completed. hb 11:50 Inserted saline lock: 20 gauge in right antecubital area, using aseptic technique. hb Blood collected. Flushed with 10 mL NS. 11:54 EKG done, by ED staff, reviewed by Pato Hamilton MD. em1 12:18 US Abdomen Limited In Process Unspecified. EDMS 12:41 Meggan Simeon, RN is Primary Nurse. hb 13:01 IV discontinued, intact, bleeding controlled, No redness/swelling at site. Pressure hb dressing applied. Administered Medications: 11:50 Drug: Famotidine IVP 20 mg IVP once; dilute with 10 mL 0.9% NaCl; give over 2 minutes hb Route: IVP; Site: right antecubital; 12:30 Follow up: Response: No adverse reaction hb 11:50 Drug: TORadol - Ketorolac IVP 15 mg IVP once Route: IVP; Site: right antecubital; hb 12:30 Follow up: Response: No adverse reaction hb 11:50 Drug: metoCLOPramide IVP 10 mg IVP once; over 1 to 2 minutes Route: IVP; Site: right hb antecubital; 12:30 Follow up: Response: No adverse reaction hb Medication: 11:28 VIS not applicable for this client. hb Outcome: 12:45 Discharge ordered by . ec2 13:01 Discharged to home ambulatory, hb 13:01 Condition: stable 13:01 Discharge instructions given to patient, Instructed on discharge instructions, follow up and referral plans. medication usage, Demonstrated understanding of instructions, follow-up care, medications, Prescriptions given X 1, 13:02 Patient left the ED. hb Signatures: Dispatcher [employer] Emmanuel Barbosa em1 Meggan Simeon, ISHA RN Pato Hamilton MD MD ec2 Belinda Nj ra3
[2024-08-03 14:14] VITALS: TEMP 97.8; O2SAT 98
[2024-08-03 14:19] VITALS: BP 121/70
--- NOTE | 2024-08-07 10:09 | EKG ---
Test Date: 2024-08-03 Test Time: 11:47:23 Amortization Schedule Clerk: CATHI MEASUREMENT RESULTS: Intervals: Rate: 64 OR: 128 QRSD: 88 QT: 410 QTc: 422 Minto: P: 65 OR: 128 QRS: 47 T: 62 INTERPRETIVE STATEMENTS: Sinus rhythm with occasional premature ventricular complexes Otherwise normal ECG No previous ECG available for comparison Electronically Signed On 08-07-24 10:07:15 POWER SYSTEM ENGINEER by Daniel Avila
== END 2024-08-03 13:02 | disposition home or self-care (01) ==
LOC: ER 10:53
DX: R10.13 Epigastric pain (principal); R11.0 Nausea; F17.210 Nicotine dependence, cigarettes, uncomplicated
CPT/HCPCS: 85025; 36415; 84484; 83690; 80053; 76705; 96375; 96374; 99284; J2765; 93005

== ENCOUNTER 2024-08-10 07:06 | Emergency (ER) | payer OTHER ==
--- OUTSIDE RECORDS SUMMARY | 2024-08-10 07:10 | XMS REPORT | Continuity of Care Document ---
Author Name Unknown Address [address] [facility] [address] [place] [address] [facility] thconnect Address [address] [facility] [address] [place] [address] Care Team Providers Care Piano Maker Name Role Phone MD YASIR WALL Primary [facility] Depression [facility] Foreign body of right cornea Problem [facility] Infected [facility] Laceration of multiple sites of upper extremity [facility] [facility] Lightheade dness [facility] Methamphet amine abuse [facility] Nausea Problem [facility] Lung nodule Problem [facility] Allergies, Adverse Reactions, Alerts Allergy Name Allergy Type Status Severity Reaction(s) Onset Date Inactive Date Treating Clinician Comments Source No known drug allergy [place] allergy Active 11-17 00:00: 00 [facility] Social History Social Habit Start Date Stop Date Quantity Comments Source History of tobacco use [facility] Smoking Status Start Date Stop Date Source Smokes tobacco daily (finding) 2019-03-01 14:00:00 [facility] Medications Ordered Medication Name Filled Medication Name Start Date Stop Date Current Medication? Ordering Clinician Indication Dosage Frequency Signature (SIG) Comments Components Source Omeprazole (Omeprazole 20 Mg *) [address] Omeprazole (Omeprazole 20 Mg *) [address] 03-12 13:28: 00 Yes 1 [facility] Amoxicillin /Clavulanat e Potassium (Augmentin *) 875 Mg TAB Amoxicillin /Clavulanat e Potassium (Augmentin *) 875 Mg TAB 03-01 14:09: 00 Yes 1 [facility] Vital Signs Vital Name Observation Time Observation Value Comments S ource Weight 2024-06-17 17:15:00 94[facility]785586 [facility] BMI (Body Mass Index) 2024-06-17 17:15:00 29.0 kg/m2 [facility] Height 2024-06-17 17:15:[address] [facility] Encounters Start Date/Time End Date/Time Encounter Type Admission Type Attending Clinicians Care Facility Care Department Encounter ID Source 2023-08-16 16:22:26 Inpatient [facility] [id number] [facility] 2023-02-09 10:29:36 Inpatient [facility] [id number] [facility] 2023-01-25 09:41:28 Inpatient [facility] [id number] [facility] 2022-12-02 13:15:43 Inpatient [facility] [id number] [facility] 2022-06-14 14:30:03 Inpatient [facility] [id number] [facility] 2022-06-10 10:32:38 Inpatient [facility] [id number] [facility] 2022-03-29 14:57:51 Inpatient [facility] [id number] [facility] 2024-06-17 17:02:00 2024-06-17 19:20:00 Emergency ER KIRIT LINTON [facility] [id number] [facility] 2024-06-17 17:02:00 2024-06-17 19:20:00 Departed Emergency Room [facility] [id number] [facility] 2024-03-12 10:51:00 2024-03-12 13:35:00 Emergency ER GRACIE CURTIS [facility] [id number] [facility] 2023-09-20 13:07:00 2023-09-20 13:07:00 Outpatient SELF/OTHER INDIVIDUAL DONAL QUINN [facility] [id number] [facility] 2022-01-01 09:31:00 2022-01-01 09:31:00 Outpatient AMBREEN_DERRELL BEE [facility]DR[facility] [id number] [facility] 2019-03-01 13:50:00 2019-03-01 15:02:00 Emergency ER NORMAN RUKHSANARonda [facility] [id number] [facility] 2017-12-16 15:43:00 2017-12-16 23:40:00 Emergency ER KIRSITE AUSTIN [facility] [id number] [facility] 2015-09-24 18:18:00 2015-09-24 20:43:00 Emergency ER MILLY TAMAYO [facility] [id number] [facility] Results Test Description Test Time Test Comments Results Result Co mments Source [facility] CtrUrine examination for white blood cells (WBC) 2024-06-17 18:18:00* Test Item Value Reference Range Interpretation Comme nts Urine WBC (test code = 175378722) 0-2 [facility] CtrAutomated epithelial cells count in urine sediment (number/area)2024-06-17 18:18:00* Test Item Value Reference Range Interpretation Comme nts Urine Epithelial Cells (test code = 04879-2) 0-2 [facility] CtrBacteria detection in urine sediment by light [id number] 18:18:00* Test Item Value Reference Range Interpretation Comme nts Urine Bacteria (test code = 68208-3) None Seen [facility] CtrUrine casts detection by automated method 2024-06-17 18:18:00* Test Item Value Reference Range Interpretation Comme nts Urine Casts (test code = 67992-6) 0-2 [facility] CtrColor of Urine by [id number] 18:13:00* Test Item Value Reference Range Interpretation Comme nts Urine Color (test code = 40939-4) Yellow [facility] CtrAppearance of [id number] 18:13:00* Test Item Value Reference Range Interpretation Comme nts Urine Appearance (test code = 5767-9) Clear [facility] CenterU[facility] glucose [id number] 18:13:00* Test Item Value Reference Range Interpretation Comme nts Urine Glucose (UA) (test cod e = 2349-9) Negative [facility] CtrBilirubin [id number] 18:13:00* Test Item Value Reference Range Interpretation Comme nts Urine Bilirubin (test code = 459075357) Negative [facility] CtrKetones [id number] 18:13:00* Test Item Value Reference Range Interpretation Comme nts Urine Ketones (test code = 73879104) Negative [facility] CtrSpecific gravity of Urine by Automated test strip 2024-06-17 18:13:00* Test Item Value Reference Range Interpretation Comme nts Urine Specific [place] (test code = 54161-7) 1.016 [facility] CenterUrine blood [id number] 18:13:00* Test Item Value Reference Range Interpretation Comme nts Urine Blood (test code = 48676-0) Negative [facility] CtrpH [id number] 18:13:00* Test Item Value Reference Range Interpretation Comme nts Urine pH (test code = 2756-5) 5.500 [facility] CtrProtein [id number] 18:13:00* Test Item Value Reference Range Interpretation Comme nts Urine Protein (test code = 05119178) Negative [facility] CtrUrobilinogen, urine, [id number] 18:13:00* Test Item Value Reference Range Interpretation Comme nts Urine Urobilinogen (test cod e = 296370691) 1.0 [facility] CtrUrine nitrate [id number] 18:13:00* Test Item Value Reference Range Interpretation Comme nts Urine Nitrate (test code = 56895-0) Negative [facility] CenterUrine leukocyte esterase dtmhwbsjy4245-69-18 18:13:00* Test Item Value Reference Range Interpretation Comme nts Urine Leukocyte Esterase (te st code = 876393680) Negative [facility] CtrSerum or plasma cardiac troponin I panel by high sensitivity nikrxi1382-91-15 18:04:00* Test Item Value Reference Range Interpretation Comme nts Troponin T High Sensitivity (test code = 00185-2) < 6.0 [facility] CtrBilirubin [id number] 18:02:00* Test Item Value Reference Range Interpretation Comme nts Total Bilirubin (test code = XNQ9677) 0.8 [facility] CtrSerum or plasma urea nitrogen measurement (mass/volume)2024-06-17 18:02:00* Test Item Value Reference Range Interpretation Comme nts Blood Urea Nitrogen (test co de = 3094-0) 9 [facility] [id number] 18:02:00* Test Item Value Reference Range Interpretation Comme nts Aspartate Amino Transf (AST/ SGOT) (test code = QFE1224) 16 [facility] CtrCreatinine [id number] 18:02:00* Test Item Value Reference Range Interpretation Comme nts Creatinine (test code = 703198858) 0.96 [facility] CtrEstimated glomerular filtration rate (GFR) fdropwjcnysea2554-28-33 18:02:00* Test Item Value Reference Range Interpretation Comme nts Glomerular Filtration Rate C alc (test code = 767601000) > 60.00 [facility] CtrBUN/creatinine jdfew4878-22-56 18:02:00* Test Item Value Reference Range Interpretation Comme nts BUN/Creatinine Ratio (test c ode = 03721419) 9.4 [facility] CtrBody fluid potassium ymhdvuhntjh5432-71-74 18:02:00* Test Item Value Reference Range Interpretation Comme nts Potassium Level (test code = 2821-7) 4.0 [facility] [id number] 18:02:00* Test Item Value Reference Range Interpretation Comme nts Carbon Dioxide Level (test c ode = 64459544) 25 [facility] CtrAnion gap mlupfxwggmi7540-32-47 18:02:00* Test Item Value Reference Range Interpretation Comme nts Anion Gap (test code = 29727695) 15.0 [facility] CtrCalcium [id number] 18:02:00* Test Item Value Reference Range Interpretation Comme nts Calcium Level (test code = 86488873) 9.4 [facility] TsrQkikhlvdp5321-77-58 18:02:00* Test Item Value Reference Range Interpretation Comme nts Magnesium Level (test code = 14504409) 2.1 [facility] CtrGlobulin [id number] 18:02:00* Test Item Value Reference Range Interpretation Comme nts Globulin (test code = 502712479) 3.2 [facility] CtrALT (SGPT) ser/qbpt5292-38-31 18:02:00* Test Item Value Reference Range Interpretation Comme nts Alanine Aminotransferase (AL T/SGPT) (test code = 1742-6) 18 [facility] VymTiwkwg4894-43-08 18:02:00* Test Item Value Reference Range Interpretation Comme nts Lipase (test code = 60767832) 14 [facility] CtrALP ser/yqxx2703-82-15 18:02:00* Test Item Value Reference Range Interpretation Comme [facility] Total Alkaline Phosphatase ( test code = 6768-6) 127 [facility] CtrAbsolute eosinophil [id number] 17:43:00* Test Item Value Reference Range Interpretation Comme [facility] Eosinophils # (Auto) (test c ode = PFL6608) 0.34 [facility] CtrRBC [id number] 17:43:00* Test Item Value Reference Range Interpretation Comme [facility] Red Blood Count (test code = 80438551) 5.06 [facility] BrwXfbyzujmdz2876-18-77 17:43:00* Test Item Value Reference Range Interpretation Comme [facility] Hematocrit (test code = 65524882) 46.3 [facility] CtrMCV (mean corpuscular volume) determination 2024-06-17 17:43:00* Test Item Value Reference Range Interpretation Comme [facility] Mean Corpuscular Volume (daniel t code = 12497-5) 91.5 [facility] CtrMean corpuscular hemoglobin (MCH) determination 2024-06-17 17:43:00* Test Item Value Reference Range Interpretation Comme [facility] Mean Corpuscular Hemoglobin (test code = 64719981) 29.4 [facility] Medical CenterMean corpuscular hemoglobin concentration (MCHC) vrnzcvlpftmhg2882-50-71 17:43:00* Test Item Value Reference Range Interpretation Comme [facility] Mean Corpuscular Hemoglobin Concent (test code = 89451869) 32.2 [facility] CtrErythrocyte distribution width coefficient of eemcpmqmc3213-37-03 17:43:00* Test Item Value Reference Range Interpretation Comme [facility] Red Cell Distribution Width (test code = 04822525) 13.5 [facility] CtrPlatelet [id number] 17:43:00* Test Item Value Reference Range Interpretation Comme [facility] Platelet Count (test code = 97007067) 395 [facility] CtrMean platelet fpwzom5179-09-09 17:43:00* Test Item Value Reference Range Interpretation Comme [facility] Mean Platelet Volume (test c ode = 97868003) 10.2 [facility] CtrNeutrophils seg % [id number] 17:43:00* Test Item Value Reference Range Interpretation Comme nts Neutrophils (%) (Auto) (test code = 10715-1) 61.0 [facility] CtrAbsolute immature granulocyte [id number] 17:43:00* Test Item Value Reference Range Interpretation Comme nts Absolute Immature Granulocyt e (auto (test code = 99332-4) 0.03 [facility] CtrBlood band neutrophils count (number/volume) 2024-06-17 17:43:00* Test Item Value Reference Range Interpretation Comme nts Neutrophils # (Auto) (test c ode = 49693-6) 5.89 [facility] CtrAbsolute lymphocyte pmofa1970-19-39 17:43:00* Test Item Value Reference Range Interpretation Comme nts Lymphocytes # (Auto) (test c ode = 18179-7) 2.80 [facility] CtrAbsolute basophil [id number] 17:43:00* Test Item Value Reference Range Interpretation Comme nts Basophils # (Auto) (test cod e = 31856689) 0.07 [facility] CtrAbsolute NRBC [id number] 17:43:00* Test Item Value Reference Range Interpretation Comme nts Nucleated Red Blood Cells # (test code = 852630721) 0 [facility] Notes <thead> Date/Time Note Provider Source [facility] [id number] 04:39:49 Follow up with your primary care doctor and be sure to acquire your medical records from [facility] as discussed. supervisor coil springs the medications prescribed by your PCP and [...] NO PHYSICIAN YASIR WALL MD Work Phone: [facility] [address] [place] [address] NO PHYSICIAN NO PHYSICIAN Future Procedures <thead> [...] Dental Caries, Adult, Easy-t o-Read Dental Pain, Rmwr-ja-Wttw Abdominal Pain, Adult, Easy- to-Read Pulmonary Nodule, Easy-to-Re ad Nausea, Adult, Oedj-hw-Dwly Eye Foreign Body, Easy-to-Re ad [facility]
[2024-08-10 07:58] LABS: Specific Gravity 1.019 (1.005-1.030); Sqamous Epithelial <5 /HPF (None Seen); Urine Bacteria None Seen /HPF (<20); Urine Bilirubin NEGATIVE (Negative); Urine Blood Negative (Negative); Urine Clarity Clear (Clear); Urine Color Light-Yellow (Yellow); Urine Culture Reflex Order NOT NEEDED; Urine Glucose NEGATIVE (Negative); Urine Ketones NEGATIVE (Negative); Urine Microscopic Reflex YN ORDER UMIC; Urine Mucus Slight /HPF (None Seen); Urine Nitrite NEGATIVE (Negative); Urine Protein NEGATIVE (Negative); Urine RBC <5 /HPF (None Seen); Urine Urobilinogen 1+ (Normal); Urine WBC <5 /HPF (<5); Urine pH 6.5 (5.0-7.0)
[2024-08-10 08:04] LABS: Absolute Basophils 0.1 K/uL (0-0.5); Absolute Eosinophils 0.3 K/uL (0-0.5); Absolute Monocytes 0.7 K/uL (0.1-1.3); Absolute Neutrophil 7.4 K/uL (1.8-8.0); Basophils % 0.5 % (0-1.3); Eosinophils % 2.9 % (0-4.4); Hematocrit 44.4 % (39.6-49.0); Hemoglobin 14.5 g/dL (13.6-17.9); Lymphocytes % 19.3 % (15.3-44.8); MCH 29.5 pg (27.0-35.0); MCHC 32.7 g/dL (32.0-36.0); MCV 90.3 fL (80-100); MPV 8.6 fL (7.6-11.3); Monocytes % 6.7 % (3.3-12.3); Neutrophils % 70.6 % (41.7-73.7); Platelets 293 thou/uL (152-406); RBC Red Blood Cell Count 4.92 M/uL (4.33-5.43)
[2024-08-10 08:16] LABS: ALT/SGPT 15 U/L (16-61); Albumin 3.5 g/dL (3.4-5.0); Albumin/Globulin Ratio 0.9 (1.1-1.8); Alkaline Phosphatase 88 U/L (45-117); BUN Blood Urea Nitrogen 13 mg/dL (7-18); Bicarbonate 29 mEq/L (21-32); Bilirubin Total 0.9 mg/dL (0.2-1.0); Globulin 3.7 g/dL (2.3-3.5); Glomerular Filtration Rate 94 ml/min (=/>90); Glucose Level 99 mg/dL (74-106); Lipase 18 U/L (13-75); Protein, Total 7.2 g/dL (6.4-8.2); Sodium Level 139 mEq/L (136-145)
[2024-08-10 08:17] LABS: AST/SGOT < 10 U/L (15-37)
[2024-08-10] MEDS ORDERED: ONDANSETRON 4 MG/2 ML VIAL ONE (08:17)
[2024-08-10] MEDS ORDERED: BISACODYL 10 MG RECTAL SUPP ONE (08:17)
[2024-08-10] MEDS ORDERED: FAMOTIDINE 20 MG/2 ML VIAL IV ONE (08:17)
[2024-08-10] MEDS ORDERED: FENTANYL CITR 100 MCG/2 ML ONE (08:17)
[2024-08-10] MEDS ORDERED: NA CHLORIDE 0.9% 1,000 ML ONE (08:18)
[2024-08-10] MEDS ORDERED: LACTULOSE 20 GM/30 ML UCUP ONE (08:18)
--- NOTE | 2024-08-10 10:00 | RAD REPORT ---
EXAMINATION: CT ABDOMEN AND PELVIS WITH CONTRAST CLINICAL INDICATION: Abdominal pain TECHNIQUE: CT abdomen and pelvis was performed, after the administration of 100 cc Isovue-300.. Sagit nagi and coronal reconstructions were obtained. One or more of the following dose reduction techniques were used: Automated exposure control, adjustment of the mA and kV according to patient si ze, and iterative reconstruction. Unless otherwise specified, incidental findings do not require dedicated imaging follow-up. [id number]. Oral contrast was given. COMPARISON: .May 2024 FINDINGS: Liver, spleen, pancreas, adrenals and kidneys appear unremarkable No evidence of diverticulitis. Normal appendix Small left inguinal hernia Mild gastric distention. Small duodenal diverticulum. Small left inguinal hernia contains fat Mild to moderate amount of stool throughout the colon : IMPRESSION: Mild gastric distention
--- NOTE | 2024-08-10 10:00 | RAD REPORT ---
EXAM: Right upper quadrant ultrasound. CLINICAL HISTORY: Abdominal pain COMPARISON: August 08, 2024 FINDINGS: A gallstone is not seen. Gallbladder wall not thickened. Biliary tree normal caliber IMPRESSION: No significant abnormalities displayed
--- NOTE | 2024-08-10 10:16 | ER ---
Nurse's Notes [facility] Name: Flaco Duarte Age: 53 yrs Sex: Male : 1970 Arrival Date: 08/10/2024 Time: 07:06 Bed 13 Private MD: Diagnosis: Epigastric abdominal tenderness-gastric distention;Constipation Presentation: 08/10 07:22 Chief complaint: Patient states: abd pain, bloating and constipation that began 2 days ss ago. Pt reports a hx of diverticulosis and gastritis. Coronavirus screen: Client denies travel out of the [place] in the last 14 days. Ebola Screen: Patient denies exposure to infectious person. Patient denies travel to an Ebola-affected area in the 21 days before illness onset. Initial Sepsis Screen: Does the patient meet any 2 criteria? No. Patient's initial sepsis screen is negative. Does the patient have a suspected source of infection? No. Patient's initial sepsis screen is negative. Risk Assessment: Do you want to hurt yourself or someone else? Patient reports no desire to harm self or others. Onset of symptoms was August 08, 2024. 07:22 Method Of Arrival: Ambulatory ss 07:22 Acuity: DEYSI 3 ss Triage Assessment: 07:24 General: Appears uncomfortable, Behavior is calm, cooperative. Neuro: Level of ss Consciousness is awake, alert, obeys commands, Oriented to person, place, time, situation. Respiratory: Airway is patent Respiratory effort is even, unlabored, Respiratory pattern is regular, symmetrical. GI: Abdomen is round. : Reports burning with urination, episodic. Derm: Skin is pink, warm \T\ dry. normal. Historical: - Allergies: 07:24 No Known Allergies; ss - Home Meds: 07:24 pantoprazole oral [Active]; Reglan [Active]; Ondansetron Oral [Active]; ss 07:32 Vraylar oral [Active]; Depakote Oral [Active]; ss - PMHx: 07:24 gastritis; Diverticulitis; ss 07:32 Bipolar disorder; ss - PSHx: 07:24 None; ss - Immunization history:: Client reports receiving the 2nd dose of the Covid vaccine. - Infectious Disease History:: Denies. - Social history:: Smoking status: Patient reports the use of cigarette tobacco products, smokes one pack cigarettes per day. - Family history:: not pertinent. Screenin:[address] [facility] ED Fall Risk Assessment (Adult) History of falling in the last 3 months, jl7 including since admission No falls in past 3 months (0 pts) Confusion or Disorientation No (0 pts) Intoxicated or Sedated No (0 pts) Impaired Gait No (0 pts) Mobility Assist Device Used No (0 pt) Altered Elimination No (0 pt) Score/Fall Risk Level 0 - 2 = Low Risk Oriented to surroundings, Maintained a safe environment. Abuse screen: Denies threats or abuse. Denies injuries from another. Nutritional screening: No deficits noted. Tuberculosis screening: No symptoms or risk factors identified. Assessment: 07:45 General: Appears in no apparent distress. uncomfortable, Behavior is calm, cooperative, jl7 appropriate for age. Pain: Complains of pain in right upper quadrant Pain currently is 8 out of 10 on a pain scale. Neuro: Level of Consciousness is awake, alert, obeys commands, Oriented to person, place, time, situation. Cardiovascular: Patient's skin is warm and dry. Respiratory: Airway is patent Respiratory effort is even, unlabored, Respiratory pattern is regular, symmetrical. GI: Abdomen is round Last BM was August 08, 2024. Bowel sounds present X 4 quads. Abd is soft X 4 quads Abdomen is tender to palpation in right upper quadrant. Derm: Skin is pink, warm \T\ dry. 09:51 Reassessment: Patient appears in no apparent distress at this time. Patient and/or jl7 family updated on plan of care and expected duration. Pain level reassessed. Patient is alert, oriented x 3, equal unlabored respirations, skin warm/dry/pink. Pain rated 3/10 at this time. 10:56 Reassessment: Dr. Soria at bedside discussing results and POC. jl7 Vital Signs: 07:24 BP 130 / 85; Pulse 56; Resp 16; Temp 97.8(TE); Pulse Ox 98% on R/A; Weight 93.89 kg; ss Height 5 ft. 10 in. ; Pain 6/10; 08:15 BP 134 / 91; Pulse 51; Resp 15; Pulse Ox 96% ; Pain 8/10; jl7 09:15 Pain 3/10; jl7 09:51 BP 120 / 85; Pulse 52; Resp 15; Pulse Ox 97% ; Pain 3/10; jl7 07:24 Body Mass Index 29.70 (93.89 kg, 177.8 cm) ss 07:24 Pain Scale: Adult ss 08:15 Pain Scale: Adult jl7 09:15 Pain Scale: Adult jl7 09:51 Pain Scale: Adult jl7 ED Course: 07:12 Patient arrived in ED. gm2 07:15 Beny Bonds, RN is Primary Nurse. jl7 07:16 Shade Soria MD is Attending Physician. bharathi 07:24 Triage completed. ss 07:24 Arm band placed on right wrist. ss 07:50 Initial lab(s) drawn, by nh, sent to lab. Urine collected: clean catch specimen, clear. jl7 Inserted saline lock: 22 gauge in right antecubital area, using aseptic technique. Blood collected. Flushed with 10 mL NS. 08:39 US Abdomen Limited In Process Unspecified. EDMS 09:37 CT Abd/Pelvis - PO and IV Contrast: gastrograffin In Process Unspecified. EDMS 09:51 Patient has correct armband on for positive identification. Provided Education on: use jl7 o call chang. Pulse ox on. NIBP on. 10:15 Amado Goodwin MD is Referral Physician. bharathi 10:25 Awaiting re-evaluation by ER provider. jl7 10:40 Awaiting re-evaluation by ER provider. jl7 10:53 Awaiting re-evaluation by ER provider. jl7 11:03 No provider procedures requiring assistance completed. IV discontinued, intact, jl7 bleeding controlled, No redness/swelling at site. Pressure dressing applied. Administered Medications: 08:24 Drug: Famotidine IVP 20 mg IVP once; dilute with 10 mL 0.9% NaCl; give over 2 minutes jl7 Route: IVP; Site: right antecubital; 09:53 Follow up: Response: No adverse reaction jl7 08:24 Drug: Ondansetron IVP 4 mg IVP once; over 2 minutes Route: IVP; Site: right antecubital;jl7 10:54 Follow up: Response: No adverse reaction jl7 08:24 Drug: NS 0.9% IV 1000 ml IV at 1 bolus Per protocol; to be given as a bolus over 60 jl7 minutes Route: IV; Rate: 1 bolus; Site: right antecubital; 09:20 Follow up: IV Pause: 08/10/2024 09:20; IV Pause Reason: Patient to CT jl7 09:45 Follow up: IV Resume: 08/10/2024 09:45; IV Resume Reason: Patient returned from CT jl7 10:15 Follow up: Response: No adverse reaction; IV Status: Completed infusion jl7 08:24 Drug: fentaNYL (PF) IVP 50 mcg IVP once Route: IVP; Site: right antecubital; jl7 09:15 Follow up: Pain 3/10 Adult; Response: No adverse reaction; Pain is decreased jl7 10:16 Not Given (Patient Refused): [id number] grams 45 ml PO once jl7 10:25 Drug: Dulcolax [place] Suppository 10 mg AZ once Route: AZ; jl7 10:54 Follow up: Response: No adverse reaction jl7 10:30 Drug: GI Cocktail without - (Maalox PO 30 ml, Lidocaine Mucous Membrane 2 % 15 jl7 ml) PO once Route: PO; 10:54 Follow up: Response: No adverse reaction jl7 Medication: 07:45 VIS not applicable for this client. jl7 Outcome: 10:15 Discharge ordered by . bharathi 11:04 Discharged to home ambulatory, jl7 11:04 Condition: stable 11:04 Discharge instructions given to patient, Instructed on discharge instructions, follow up and referral plans. medication usage, Demonstrated understanding of instructions, follow-up care, medications, Prescriptions given X 4, 11:04 Patient left the ED. jl7 Signatures: Dispatcher [employer] Shade Soria MD MD cha Blanchard, Shelby, RN RN Beny Stanley RN RN jl7 Mitchell, Ginger 2 Corrections: (The following items were deleted from the chart) 07:26 07:24 PMHx: Bipolar disorder; ss ss
--- NOTE | 2024-08-10 10:16 | EDPHYS ---
Physician Documentation [facility] Name: Flaco Duarte Age: 53 yrs Sex: Male : 1970 Arrival Date: 08/10/2024 Time: 07:06 Bed 13 Private MD: ANGELO Physician Shade Soria HPI: 08/10 08:07 This 53 yrs old Male presents to ER via Ambulatory with complaints of bharathi Constipation. 08:07 The patient presents with abdominal pain in the upper abdomen, abdominal distention in bharathi the upper abdomen, in the lower abdomen. Onset: The symptoms/episode began/occurred 2 day(s) ago. The symptoms do not radiate. Associated signs and symptoms: none. Modifying factors: The symptoms are alleviated by nothing, the symptoms are aggravated by nothing. Severity of pain: At its worst the pain was moderate in the emergency department the pain is unchanged. The patient has not experienced similar symptoms in the past. Historical: - Allergies: 07:24 No Known Allergies; ss - Home Meds: 07:24 pantoprazole oral [Active]; Reglan [Active]; Ondansetron Oral [Active]; ss 07:32 Vraylar oral [Active]; Depakote Oral [Active]; ss - PMHx: 07:24 gastritis; Diverticulitis; ss 07:32 Bipolar disorder; ss - PSHx: 07:24 None; ss - Immunization history:: Client reports receiving the 2nd dose of the Covid vaccine. - Infectious Disease History:: Denies. - Social history:: Smoking status: Patient reports the use of cigarette tobacco products, smokes one pack cigarettes per day. - Family history:: not pertinent. ROS: 08:07 Constitutional: Negative for fever, chills, and weight loss, Eyes: Negative for injury, bharathi pain, redness, and discharge, ENT: Negative for injury, pain, and discharge, Neck: Negative for injury, pain, and swelling, Cardiovascular: Negative for chest pain, palpitations, and edema, Respiratory: Negative for shortness of breath, cough, wheezing, and pleuritic chest pain, Back: Negative for injury and pain, : Negative for injury, bleeding, discharge, and swelling, MS/Extremity: Negative for injury and deformity, Skin: Negative for injury, rash, and discoloration, Neuro: Negative for headache, weakness, numbness, tingling, and seizure, Psych: Negative for depression, anxiety, suicide ideation, homicidal ideation, and hallucinations, Allergy/Immunology: Negative for hives, rash, and allergies, Endocrine: Negative for neck swelling, polydipsia, polyuria, polyphagia, and marked weight changes, Hematologic/Lymphatic: Negative for swollen nodes, abnormal bleeding, and unusual bruising, 08:07 Abdomen/GI: Positive for abdominal pain, of the right upper quadrant and left upper quadrant, Exam: 08:07 Constitutional: This is a well developed, well nourished patient who is awake, alert, bharathi and in no acute distress. Head/Face: Normocephalic, atraumatic. Eyes: Pupils equal round and reactive to light, extra-ocular motions intact. Lids and lashes normal. Conjunctiva and sclera are non-icteric and not injected. Cornea within normal limits. Periorbital areas with no swelling, redness, or edema. ENT: Nares patent. No nasal discharge, no septal abnormalities noted. Tympanic membranes are normal and external auditory canals are clear. Oropharynx with no redness, swelling, or masses, exudates, or evidence of obstruction, uvula midline. Mucous membranes moist. Neck: Trachea midline, no thyromegaly or masses palpated, and no cervical lymphadenopathy. Supple, full range of motion without nuchal rigidity, or vertebral point tenderness. No Meningismus. Chest/axilla: Normal chest wall appearance and motion. Nontender with no deformity. No lesions are appreciated. Cardiovascular: Regular rate and rhythm with a normal S1 and S2. No gallops, murmurs, or rubs. Normal PMI, no JVD. No pulse deficits. Abdomen/GI: Soft, non-tender, with normal bowel sounds. No distension or tympany. No guarding or rebound. No evidence of tenderness throughout. Back: No spinal tenderness. No costovertebral tenderness. Full range of motion. Male : Normal genitalia with no discharge or lesions. Skin: Warm, dry with normal turgor. Normal color with no rashes, no lesions, and no evidence of cellulitis. MS/ Extremity: Pulses equal, no cyanosis. Neurovascular intact. Full, normal range of motion. Neuro: Awake and alert, GCS 15, oriented to person, place, time, and situation. Cranial nerves II-XII grossly intact. Motor strength 5/5 in all extremities. Sensory grossly intact. Cerebellar exam normal. Normal gait. Psych: Awake, alert, with orientation to person, place and time. Behavior, mood, and affect are within normal limits. 08:07 Respiratory: Exam negative for 08:07 Abdomen/GI: Inspection: abdomen appears normal, Bowel sounds: normal, Palpation: mild abdominal tenderness, moderate abdominal tenderness, in the right upper quadrant and left upper quadrant, Liver: no appreciated palpable abnormalities, Hernia: not appreciated, Vital Signs: 07:24 BP 130 / 85; Pulse 56; Resp 16; Temp 97.8(TE); Pulse Ox 98% on R/A; Weight 93.89 kg; ss Height 5 ft. 10 in. ; Pain 6/10; 08:15 BP 134 / 91; Pulse 51; Resp 15; Pulse Ox 96% ; Pain 8/10; jl7 09:15 Pain 3/10; jl7 09:51 BP 120 / 85; Pulse 52; Resp 15; Pulse Ox 97% ; Pain 3/10; jl7 07:24 Body Mass Index 29.70 (93.89 kg, 177.8 cm) ss 07:24 Pain Scale: Adult ss 08:15 Pain Scale: Adult jl7 09:15 Pain Scale: Adult jl7 09:51 Pain Scale: Adult jl7 MDM: 07:13 Medical Screening Exam initiated bharathi 07:16 Medical Screening Exam initiated bharathi 08:09 Differential diagnosis: appendicitis, bowel obstruction, cholecystitis, Cholelithiasis, bharathi diverticulitis, gastritis, gastroesophageal reflux disease, Hepatitis, Mesenteric ischemia or infarction, non-specific abd pain, pancreatitis, Peptic Ulcer Disease, urinary tract infection. Data reviewed: vital signs, nurses notes, lab test result(s), radiologic studies, CT scan, ultrasound. Consideration of Admission/Observation Escalation of care including admission/observation considered. I considered the following discharge prescriptions or medication management in the emergency department Medications were administered in the Emergency Department. See MAR. Historians other than the Patient: Family Member: family well informed. 08/10 07:19 Order name: CBC with Diff; Complete Time: 09:24 [facility] 08/10 07:19 Order name: CMP; Complete Time: :24 [facility] 08/10 07:19 Order name: Lipase; Complete Time: : [facility] 08/10 07:19 Order name: Urinalysis w/ reflexes; Complete Time: :24 [facility] 08/10 07:19 Order name: CT Abd/Pelvis - PO and IV Contrast: gastrograffin; Complete Time: 10:13 [facility] 08/10 07:34 Order name: US Abdomen Limited; Complete Time: 10:13 7 08/10 07:19 Order name: IV Saline Lock; Complete Time: 07:51 [facility] 08/10 07:19 Order name: Labs collected and sent; Complete Time: 07:51 [facility] Administered Medications: 08:24 Drug: Famotidine IVP 20 mg IVP once; dilute with 10 mL 0.9% NaCl; give over 2 minutes jl7 Route: IVP; Site: right antecubital; 09:53 Follow up: Response: No adverse reaction jl7 08:24 Drug: Ondansetron IVP 4 mg IVP once; over 2 minutes Route: IVP; Site: right antecubital;jl7 10:54 Follow up: Response: No adverse reaction jl7 08:24 Drug: NS 0.9% IV 1000 ml IV at 1 bolus Per protocol; to be given as a bolus over 60 jl7 minutes Route: IV; Rate: 1 bolus; Site: right antecubital; 09:20 Follow up: IV Pause: 08/10/2024 09:20; IV Pause Reason: Patient to CT jl7 09:45 Follow up: IV Resume: 08/10/2024 09:45; IV Resume Reason: Patient returned from CT jl7 10:15 Follow up: Response: No adverse reaction; IV Status: Completed infusion jl7 08:24 Drug: fentaNYL (PF) IVP 50 mcg IVP once Route: IVP; Site: right antecubital; jl7 09:15 Follow up: Pain 3/10 Adult; Response: No adverse reaction; Pain is decreased jl7 10:16 Not Given (Patient Refused): [id number] grams 45 ml PO once jl7 10:25 Drug: Dulcolax CO Suppository 10 mg CO once Route: CO; jl7 10:54 Follow up: Response: No adverse reaction jl7 10:30 Drug: GI Cocktail without - (Maalox PO 30 ml, Lidocaine Mucous Membrane 2 % 15 jl7 ml) PO once Route: PO; 10:54 Follow up: Response: No adverse reaction jl7 Disposition Summary: 11/29/24 10:15 Discharge Ordered Notes: Location: Home [facility] Problem: new bharathi Symptoms: have improved bharathi Condition: Stable bharathi Diagnosis - Epigastric abdominal tenderness - gastric distention bharathi - Constipation bharathi Followup: bharathi - With: Private Physician - When: 2 - 3 days - Reason: Recheck today's complaints, Continuance of care, Re-evaluation by your physician Followup: bharathi - With: Amado Goodwin MD - When: 2 - 3 days - Reason: Recheck today's complaints, Re-evaluation by your physician Discharge Instructions: - Discharge Summary Sheet bharathi - Abdominal Pain, Adult bharathi - Constipation, Adult bharathi - Constipation, Adult, [id number] bharathi - Abdominal Pain, Adult, [id number] [facility] Forms: - Medication Reconciliation Form [facility] - Antibiotic Education bharathi - Prescription Opioid Use [facility] - Patient Portal Instructions [facility] - Leadership Thank You Letter [facility] Prescriptions: - Dulcolax (bisacodyl) 10 mg Rectal suppository - insert 1 suppository RECTAL route every 12 hours for 5 days; 10 suppository; [facility] Refills: 0, Product Selection Permitted - ondansetron 4 mg Oral Tablet,disintegrating - take 1 tablet ORAL route every 8 hours for 5 days prn; 20 tablet; Refills: 0, [facility] Product Selection Permitted - Pepcid 20 mg Oral tablet - take 1 tablet ORAL route every 12 hours for 21 days; 42 tablet; Refills: 0, [facility] Product Selection Permitted - Lactulose 10 gram/15 mL Oral Solution - take 30 milliliters ORAL route once daily; 300 milliliter; Refills: 0, Product [facility] Selection Permitted Signatures: Dispatcher [employer] Shade Casillas MD MD cha Blanchard, Shelby, RN RN Beny Stanley RN RN jl7 Corrections: (The following items were deleted from the chart) 07:26 07:24 PMHx: Bipolar disorder; ss
[2024-08-10] MEDS ORDERED: LIDOCAINE VISCOUS 2% 10ML ORAL SOLN ONE (10:30)
[2024-08-10] MEDS ORDERED: MAGNES/ALUMIN/SIMET 30ML UCUP ONE (10:30)
[2024-08-10 11:35] VITALS: TEMP 97.8
[2024-08-10 11:47] VITALS: BP 120/85; O2SAT 97
== END 2024-08-10 11:04 | disposition home or self-care (01) ==
LOC: ER 07:06
DX: K59.00 Constipation, unspecified (principal); R14.0 Abdominal distension (gaseous); F17.210 Nicotine dependence, cigarettes, uncomplicated
CPT/HCPCS: 85025; 81001; 36415; 83690; 80053; 74177; 76705; Q9967; J3010; J2405; J7030; 96361; 96374; 96375; 99284

== ENCOUNTER 2024-11-20 06:27 | Emergency (ER) | payer OTHER ==
--- OUTSIDE RECORDS SUMMARY | 2024-11-20 06:30 | XMS REPORT | Continuity of Care Document ---
Author Name Unknown Address [address] [facility] [address] [place] [address] [facility] Address [address] [facility] 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 Role Phone MD YASIR WALL Primary Care Physician YASIR WALL Attending Clinician Unavailable KIRIT LINTON Attending Clinician UnavailGRACIE Tripathi Attending Clinician UnavailDONAL Walls Attending Clinician Unavailable AMBREEN_FARHANA Attending Clinician Unavailable KIRSTIE AUSTIN Attending Clinician Unavailable MILLY TAMAYO Attending Clinician Unavailable AMBREEN_FARHANA Admitting Clinician Unavailable Payers Payer Name Policy Type Policy Number Effective Date Expirati on Date Source Problems Condition Name Condition Details Condition Category Status Onset Date Resolution Date Last Treatment Date Treating Clinician Comments Source Bipolar I disorder, most recent episode depression Bipolar I Disorder, Most Recent Episode Depression Problem Active 11-12 00:00: 00 [facility] Abdominal pain Problem [facility] Dental caries Problem [facility] Depression Problem [facility] Foreign body of right cornea Problem [facility] Infected dental caries Problem [facility] Laceration of multiple sites of upper extremity Problem [facility] Lightheade dness Problem [facility] Methamphet amine abuse Problem [facility] Nausea Problem [facility] Lung nodule Problem [facility] Allergies, Adverse Reactions, Alerts Allergy Name Allergy Type Status Severity Reaction(s) Onset Date Inactive Date Treating Clinician Comments Source No known drug allergy Miscella neous allergy Active 3 00:00: 00 [facility] Social History Social Habit Start Date Stop Date Quantity Comments Source History of tobacco use [facility] Smoking Status Start Date Stop Date Source Current Every Day Smoker [facility] Medications Ordered Medication Name Filled Medication Name Start Date Stop Date Current Medication? Ordering Clinician Indication Dosage Frequency Signature (SIG) Comments Components Source Omeprazole (Omeprazole 20 Mg *) [address] Omeprazole (Omeprazole 20 Mg *) [address] 03-12 13:28: 00 Yes 1 [facility] Amoxicillin /Clavulanat e Potassium (Augmentin *) 875 Mg TAB Amoxicillin /Clavulanat e Potassium (Augmentin *) 875 Mg TAB 03-01 14:09: 00 Yes 1 [facility] Linzess 290 mcg capsule TAKE 1 CAPSULE BY MOUTH EVERY MORNING 30 MINUTES BEFORE BREAKFAST Linzess 290 mcg capsule TAKE 1 CAPSULE BY MOUTH EVERY MORNING 30 MINUTES BEFORE BREAKFAST No Linzess 290 mcg capsule TAKE 1 CAPSULE BY MOUTH EVERY MORNING 30 MINUTES BEFORE BREAKFAST [facility] methocarbam ol 750 mg tablet TAKE 1 TABLET BY MOUTH FOUR TIMES DAILY methocarbam ol 750 mg tablet TAKE 1 TABLET BY MOUTH FOUR TIMES DAILY No methocarba mol 750 mg tablet TAKE 1 TABLET BY MOUTH FOUR TIMES DAILY [facility] Movantik 25 mg tablet Take 1 tablet every day by oral route for 30 days. Movantik 25 mg tablet Take 1 tablet every day by oral route for 30 days. No 1 Q1D Movantik 25 mg tablet Take 1 tablet every day by oral route for 30 days. [facility] ondansetron 4 mg disintegrat ing tablet DISSOLVE 1 TO 2 TABLETS UNDER THE TONGUE EVERY 6 HOURS NEEDED FOR VOMITING AND NAUSEA ondansetron 4 mg disintegrat ing tablet DISSOLVE 1 TO 2 TABLETS UNDER THE TONGUE EVERY 6 HOURS NEEDED FOR VOMITING AND NAUSEA No ondansetro n 4 mg disintegra ting tablet DISSOLVE 1 TO 2 TABLETS UNDER THE TONGUE EVERY 6 HOURS NEEDED FOR VOMITING AND NAUSEA [facility] pantoprazol e 40 mg tablet,ana yed release TAKE 1 TABLET BY MOUTH IN THE MORNING pantoprazol e 40 mg tablet,ana yed release TAKE 1 TABLET BY MOUTH IN THE MORNING No pantoprazo le 40 mg tablet,del ayed release TAKE 1 TABLET BY MOUTH IN THE MORNING [facility] Depakote ER 500 mg tablet,exte nded release Take 1 tablet twice a day by oral route as directed. Depakote ER 500 mg tablet,exte nded release Take 1 tablet twice a day by oral route as directed. No 1 BID Depakote ER 500 mg tablet,ext ended release Take 1 tablet twice a day by oral route as directed. [facility] Vraylar 4.5 mg capsule Take 1 capsule every day by oral route at bedtime. Vraylar 4.5 mg capsule Take 1 capsule every day by oral route at bedtime. No 1capsul e(s) Q1D Vraylar 4.5 mg capsule Take 1 capsule every day by oral route at bedtime. [facility] diclofenac sodium 75 mg tablet,ana yed release TAKE 1 TABLET BY MOUTH TWICE DAILY diclofenac sodium 75 mg tablet,ana yed release TAKE 1 TABLET BY MOUTH TWICE DAILY No diclofenac sodium 75 mg tablet,del ayed release TAKE 1 TABLET BY MOUTH TWICE DAILY [facility] Vital Signs Vital Name Observation Time Observation Value Comments S ource Height 2024-11-12 00:00:00 71 [in_i] Nery wilcox [facility] Body Weight 2024-11-12 00:00:00 214 [lb_av] [facility] BMI (Body Mass Index) 2024-11-12 00:00:00 29.8 kg/m2 [facility] BMI (Body Mass Index) 2024-11-08 00:00:00 29.5 kg/m2 [facility] BP Diastolic 2024-11-08 00:00:00 76 mm[Hg] Pineda agorda [facility] BP Systolic 2024-11-08 00:00:00 120 mm[Hg] Jose almanzaa [facility] Height 2024-11-08 00:00:00 71 [in_i] Nery bradshawa [facility] Body Weight 2024-11-08 00:00:00 211.8 [lb_av] M katiegorda [facility] Weight 2024-06-17 17:15:00 94.357969 kg [facility] BMI (Body Mass Index) 2024-06-17 17:15:00 29.0 kg/m2 [facility] Height 2024-06-17 17:15:00 180.200800 cm [facility] Encounters Start Date/Time End Date/Time Encounter Type Admission Type Attending [facility] Care Facility Care Department Encounter ID Source 2023-08-16 16:22:[address] [facility] [id number] [facility] 2023-02-09 10:29:[address] [facility] [id number] [facility] 2023-01-25 09:41:[address] [facility] [id number] [facility] 2022-12-02 13:15:[address] [facility] [id number] [facility] 2022-06-14 14:30:[address] [facility] [id number] [facility] 2022-06-10 10:32:[address] [facility] [id number] [facility] 2022-03-29 14:57:51 Inpatient [place] [id number] [facility] 2024-11-12 00:00:00 2024-11-12 00:00:00 Fred Erazo MD: [address] [place] [address] , Ph. [phone] [facility] [place] [facility] [id number] [facility] 2024-11-08 00:00:00 2024-11-08 00:00:00 Gabe Campos MD: [address], [place] [address] , Ph. [facility] [place] [facility] 0227 [facility] 2024-08-30 07:38:00 2024-08-30 07:38:00 Outpatient YASIR PEOPLES [facility] [id number] [facility] 2024-06-17 17:02:00 2024-06-17 19:20:00 Emergency ER KIRIT LINTON [facility] [id number] [facility] 2024-06-17 17:02:00 2024-06-17 19:20:00 Departed Emergency Room [facility] [id number] [facility] 2024-03-12 10:51:00 2024-03-12 13:35:00 Emergency ER GRACIE CURTIS [facility] [id number] [facility] 2023-09-20 13:07:00 2023-09-20 13:07:00 Outpatient SELF/OTHER INDIVIDUAL DONAL QUINN [facility] [id number] [facility] 2022-01-01 09:31:00 2022-01-01 09:31:00 Outpatient CARLOS_DERRELL BEE [facility] [id number] [facility] 2019-03-01 13:50:00 2019-03-01 15:02:00 Emergency ER KIRSTIE AUSTIN [facility] [id number] [facility] 2017-12-16 15:43:00 2017-12-16 23:40:00 Emergency ER KIRSTIE AUSTIN [facility] [id number] [facility] 2015-09-24 18:18:00 2015-09-24 20:43:00 Emergency ER MILLY TAMAYO [facility] [id number] [facility] Results Test Description Test Time Test Comments Results Result Co mments Source [facility] CtrUrine examination for white blood cells (WBC) 2024-06-17 18:18:00* Test Item Value Reference Range Interpretation Comme nts Urine WBC (test code = 476854984) 0-2 [facility] CtrAutomated epithelial cells count in urine sediment (number/area)2024-06-17 18:18:00* Test Item Value Reference Range Interpretation Comme nts Urine Epithelial Cells (test code = 91590-7) 0-2 [facility] CtrBacteria detection in urine sediment by light [id number] 18:18:00* Test Item Value Reference Range Interpretation Comme nts Urine Bacteria (test code = 73708-8) None [facility]en [facility] detection by automated method 2024-06-17 18:18:00* Test Item Value Reference Range Interpretation Comme nts Urine Casts (test code = 52246-4) 0-2 [facility] CtrColor of Urine by [id number] 18:13:00* Test Item Value Reference Range Interpretation Comme nts Urine Color (test code = 41103-2) Yellow [facility] CtrAppearance of [id number] 18:13:00* Test Item Value Reference Range Interpretation Comme nts Urine Appearance (test code = 5767-9) Clear [facility] glucose [id number] 18:13:00* Test Item Value Reference Range Interpretation Comme nts Urine Glucose (UA) (test cod e = 2349-9) Negative [facility] CtrBilirubin [id number] 18:13:00* Test Item Value Reference Range Interpretation Comme nts Urine Bilirubin (test code = 284566886) Negative [facility] CtrKetones [id number] 18:13:00* Test Item Value Reference Range Interpretation Comme nts Urine Ketones (test code = 05617335) Negative [facility] CtrSpecific gravity of Urine by Automated test strip 2024-06-17 18:13:00* Test Item Value Reference Range Interpretation Comme nts Urine Specific Boyd (test code = 20084-2) 1.016 [facility] CtrUrine blood tofipbnro7682-46-37 18:13:00* Test Item Value Reference Range Interpretation Comme nts Urine Blood (test code = 25685-6) Negative [facility] CtrpH [id number] 18:13:00* Test Item Value Reference Range Interpretation Comme nts Urine pH (test code = 2756-5) 5.500 [facility] CtrProtein [id number] 18:13:00* Test Item Value Reference Range Interpretation Comme nts Urine Protein (test code = 10607920) Negative [facility] CtrUrobilinogen, urine, [id number] 18:13:00* Test Item Value Reference Range Interpretation Comme nts Urine Urobilinogen (test cod e = 681673733) 1.0 [facility] CtrUrine nitrate jlotwdddu7576-66-80 18:13:00* Test Item Value Reference Range Interpretation Comme nts Urine Nitrate (test code = 99705-1) Negative [facility] CtrUrine leukocyte esterase afnpbsuur9366-40-81 18:13:00* Test Item Value Reference Range Interpretation Comme nts Urine Leukocyte Esterase (te st code = 661618381) Negative [facility] CtrSerum or plasma cardiac troponin I panel by high sensitivity pkyqns2792-34-33 18:04:00* Test Item Value Reference Range Interpretation Comme nts Troponin T High Sensitivity (test code = 81963-8) < 6.0 [facility] [id number] 18:02:00* Test Item Value Reference Range Interpretation Comme nts Carbon Dioxide Level (test c ode = 39664462) 25 [facility] CtrAnion gap sgtcrwjuzpt5275-23-46 18:02:00* Test Item Value Reference Range Interpretation Comme nts Anion Gap (test code = 23854933) 15.0 [facility] CtrCalcium exjeg1713-64-14 18:02:00* Test Item Value Reference Range Interpretation Comme nts Calcium Level (test code = 39834297) 9.4 [facility] UzqCoftclpnj7050-83-31 18:02:00* Test Item Value Reference Range Interpretation Comme nts Magnesium Level (test code = 93035649) 2.1 [facility] CtrGlobulin eha9988-03-53 18:02:00* Test Item Value Reference Range Interpretation Comme nts Globulin (test code = 458232158) 3.2 [facility] CtrALT (SGPT) ser/tjfu2124-45-88 18:02:00* Test Item Value Reference Range Interpretation Comme nts Alanine Aminotransferase (AL T/SGPT) (test code = 1742-6) 18 [facility] ItkRkklsl6473-92-54 18:02:00* Test Item Value Reference Range Interpretation Comme nts Lipase (test code = 54995663) 14 [facility] CtrALP ser/anhb1177-86-54 18:02:00* Test Item Value Reference Range Interpretation Comme nts Total Alkaline Phosphatase ( test code = 6768-6) 127 [facility] CtrBilirubin tvgnv4489-08-23 18:02:00* Test Item Value Reference Range Interpretation Comme nts Total Bilirubin (test code = JQB1271) 0.8 [facility] CtrSerum or plasma urea nitrogen measurement (mass/volume)2024-06-17 18:02:00* Test Item Value Reference Range Interpretation Comme nts Blood Urea Nitrogen (test co de = 3094-0) 9 [facility] VcwTFH3763-51-04 18:02:00* Test Item Value Reference Range Interpretation Comme nts Aspartate Amino Transf (AST/ SGOT) (test code = YIB8932) 16 [facility] CtrCreatinine [id number] 18:02:00* Test Item Value Reference Range Interpretation Comme nts Creatinine (test code = 972681212) 0.96 [facility] CtrEstimated glomerular filtration rate (GFR) fwrnlfkgutmjg7887-76-73 18:02:00* Test Item Value Reference Range Interpretation Comme [facility] Glomerular Filtration Rate C alc (test code = 005212135) > 60.00 [facility] CtrBUN/creatinine ptzop4949-74-79 18:02:00* Test Item Value Reference Range Interpretation Comme [facility] BUN/Creatinine Ratio (test c ode = 27537263) 9.4 [facility] CtrBody fluid potassium tnhsuvhavci9035-80-91 18:02:00* Test Item Value Reference Range Interpretation Comme [facility] Potassium Level (test code = 2821-7) 4.0 [facility] CtrAbsolute eosinophil pweru7120-06-12 17:43:00* Test Item Value Reference Range Interpretation Comme nts Eosinophils # (Auto) (test c ode = TVP0029) 0.34 [facility] CtrRBC fzupi6937-76-22 17:43:00* Test Item Value Reference Range Interpretation Comme [facility] Red Blood Count (test code = 11332249) 5.06 [facility] EtzHribnanagi3331-35-55 17:43:00* Test Item Value Reference Range Interpretation Comme [facility] Hematocrit (test code = 80421476) 46.3 [facility] CtrMCV (mean corpuscular volume) determination 2024-06-17 17:43:00* Test Item Value Reference Range Interpretation Comme [facility] Mean Corpuscular Volume (daniel t code = 28819-1) 91.5 [facility] CtrMean corpuscular hemoglobin (MCH) determination 2024-06-17 17:43:00* Test Item Value Reference Range Interpretation Comme [facility] Mean Corpuscular Hemoglobin (test code = 67003541) 29.4 [facility] CtrMean corpuscular hemoglobin concentration (MCHC) skskcvxxurfld6277-08-35 17:43:00* Test Item Value Reference Range Interpretation Comme [facility] Mean Corpuscular Hemoglobin Concent (test code = 33068283) 32.2 [facility] CtrErythrocyte distribution width coefficient of gqfavwknz5721-20-94 17:43:00* Test Item Value Reference Range Interpretation Comme [facility] Red Cell Distribution Width (test code = 58924594) 13.5 [facility] CtrPlatelet arvaj2934-30-30 17:43:00* Test Item Value Reference Range Interpretation Comme nts Platelet Count (test code = 93211946) 395 [facility] CtrMean platelet iqnqvq2213-40-02 17:43:00* Test Item Value Reference Range Interpretation Comme nts Mean Platelet Volume (test c ode = 74240123) 10.2 [facility] CtrNeutrophils seg % [id number] 17:43:00* Test Item Value Reference Range Interpretation Comme nts Neutrophils (%) (Auto) (test code = 01328-4) 61.0 [facility] CtrAbsolute immature granulocyte qdspn3366-84-02 17:43:00* Test Item Value Reference Range Interpretation Comme nts Absolute Immature Granulocyt e (auto (test code = 85706-5) 0.03 [facility] neutrophils count (number/volume) 2024-06-17 17:43:00* Test Item Value Reference Range Interpretation Comme nts Neutrophils # (Auto) (test c ode = 44782-4) 5.89 [facility] CampusAbsolute lymphocyte [id number] 17:43:00* Test Item Value Reference Range Interpretation Comme nts Lymphocytes # (Auto) (test c ode = 93395-8) 2.80 [facility] basophil jpxec2053-79-35 17:43:00* Test Item Value Reference Range Interpretation Comme nts Basophils # (Auto) (test cod e = 34119839) 0.07 [facility] CtrAbsolute NRBC [id number] 17:43:00* Test Item Value Reference Range Interpretation Comme nts Nucleated Red Blood Cells # (test code = 065423412) 0 [facility] Notes <thead> Date/Time Note Provider Source [facility]2024-10-10 04:39:49 Follow up with your primary care doctor and be sure to acquire your medical records from [place] as discussed. 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
[2024-11-20 07:05] LABS: Absolute Basophils 0.1 K/uL (0-0.5); Absolute Eosinophils 0.4 K/uL (0-0.5); Absolute Lymphocytes (CBC) 3.1 K/uL (0.7-4.9); Absolute Monocytes 0.7 K/uL (0.1-1.3); Absolute Neutrophil 5.2 K/uL (1.8-8.0); Basophils % 0.7 % (0-1.3); Eosinophils % 3.9 % (0-4.4); Hematocrit 44.6 % (39.6-49.0); Hemoglobin 15.1 g/dL (13.6-17.9); Lymphocytes % 33.1 % (15.3-44.8); MCH 29.5 pg (27.0-35.0); MCHC 33.9 g/dL (32.0-36.0); MCV 87.2 fL (80-100); MPV 8.1 fL (7.6-11.3); Monocytes % 7.1 % (3.3-12.3); Neutrophils % 55.2 % (41.7-73.7); Nucleated Red Blood Cells % 0.1 % (0-0); Platelets 298 thou/uL (152-406); RBC Red Blood Cell Count 5.11 M/uL (4.33-5.43); Red Cell Distribution Width 13.9 % (12.1-15.2)
[2024-11-20 07:23] LABS: ALT/SGPT 17 U/L (16-61); Albumin 3.1 g/dL (3.4-5.0); Albumin/Globulin Ratio 0.8 (1.1-1.8); Alkaline Phosphatase 90 U/L (45-117); Anion Gap 8.1 mEq/L (5.0-15.0); BUN Blood Urea Nitrogen 20 mg/dL (7-18); Bicarbonate 27 mEq/L (21-32); Bilirubin Total 0.4 mg/dL (0.2-1.0); Globulin 3.7 g/dL (2.3-3.5); Glomerular Filtration Rate 101 ml/min (=/>90); Glucose Level 88 mg/dL (74-106); Lipase 42 U/L (13-75); Potassium 4.1 mEq/L (3.5-5.1); Protein, Total 6.8 g/dL (6.4-8.2); Sodium Level 139 mEq/L (136-145); Troponin High Sensitivity 4.7 pg/mL (<58.9)
[2024-11-20 07:25] LABS: AST/SGOT < 10 U/L (15-37)
[2024-11-20 07:32] LABS: Sqamous Epithelial <5 /HPF (None Seen); Urine Bacteria None Seen /HPF (<20); Urine Bilirubin NEGATIVE (Negative); Urine Blood Negative (Negative); Urine Clarity Clear (Clear); Urine Color Light-Yellow (Yellow); Urine Culture Reflex Order NOT NEEDED; Urine Glucose NEGATIVE (Negative); Urine Ketones NEGATIVE (Negative); Urine Microscopic Reflex YN ORDER UMIC; Urine Mucus Slight /HPF (None Seen); Urine Nitrite NEGATIVE (Negative); Urine Protein NEGATIVE (Negative); Urine RBC <5 /HPF (None Seen); Urine Urobilinogen Normal (Normal); Urine WBC <5 /HPF (<5); Urine pH 5.5 (5.0-7.0)
[2024-11-20] MEDS ORDERED: ONDANSETRON 4 MG/2 ML VIAL ONE (07:40)
--- NOTE | 2024-11-20 07:48 | ER ---
Nurse's Notes [facility] Name: Flaco Duarte Age: 54 yrs Sex: Male : 1970 Arrival Date: 11/20/2024 Time: 06:27 Bed 7 Private MD: Diagnosis: Nausea;Abdominal pain, unspecified Presentation: 11/20 06:45 Chief complaint: Patient states: I have some right upper quadrant pain that has been kd3 going on for months. No one can figure out what is wrong. I have been taking Tylenol 3 and a muscle relaxer for it. About 3 days ago i started getting really nauseous on and off. This morning i feel really nauseous. Coronavirus screen: Vaccine status: Patient reports receiving the 2nd dose of the covid vaccine. Ebola Screen: No symptoms or risks identified at this time. Initial Sepsis Screen: Does the patient meet any 2 criteria? No. Patient's initial sepsis screen is negative. Does the patient have a suspected source of infection? No. Patient's initial sepsis screen is negative. Risk Assessment: Do you want to hurt yourself or someone else? Patient reports no desire to harm self or others. Onset of symptoms was November 20, 2024. 06:45 Method Of Arrival: Ambulatory kd3 06:45 Acuity: DEYSI 3 kd3 Triage Assessment: 06:47 General: Appears in no apparent distress. Behavior is calm, cooperative. Pain: kd3 Complains of pain in right upper quadrant. GI: Reports nausea. Historical: - Home Meds: 06:47 Vraylar oral [Active]; Reglan [Active]; pantoprazole oral [Active]; Ondansetron Oral kd3 [Active]; Depakote Oral [Active]; - PMHx: 06:47 Bipolar disorder; Diverticulitis; gastritis; kd3 - Immunization history:: Adult Immunizations up to date. - Infectious Disease History:: Denies. - Social history:: Smoking status: Patient reports the use of cigarette tobacco products, denies chronic smoking, but will smoke occasionally. - Family history:: not pertinent. - Hospitalizations: : No recent hospitalization is reported. Screenin:48 [facility] ED Fall Risk Assessment (Adult) History of falling in the last 3 months, kd3 including since admission No falls in past 3 months (0 pts) Confusion or Disorientation No (0 pts) Intoxicated or Sedated No (0 pts) Impaired Gait No (0 pts) Mobility Assist Device Used No (0 pt) Altered Elimination No (0 pt) Score/Fall Risk Level 0 - 2 = Low Risk Oriented to surroundings. Abuse screen: Denies threats or abuse. Denies injuries from another. Nutritional screening: No deficits noted. Tuberculosis screening: No symptoms or risk factors identified. Assessment: 06:58 General: Appears in no apparent distress. Behavior is calm, cooperative. Neuro: Level kd3 of Consciousness is awake, alert, obeys commands, Oriented to person, place, time, situation. Respiratory: Airway is patent Trachea midline Respiratory effort is even, unlabored, Respiratory pattern is regular, symmetrical. GI: Abdomen is round non-distended, obese. 08:06 Reassessment: Patient and/or family updated on plan of care and expected duration. Pain ap3 level reassessed. Patient is alert, oriented x 3, equal unlabored respirations, skin warm/dry/pink. Vital Signs: 06:45 BP 131 / 89; Pulse 52; Resp 18; Temp 97.5(O); Pulse Ox 98% ; Weight 95.71 kg; Height 5 kd3 ft. 11 in. ; 08:06 BP 112 / 69; Pulse 62; Resp 18; Pulse Ox 98% on R/A; ap3 06:45 Body Mass Index 29.43 (95.71 kg, 180.34 cm) kd3 ED Course: 06:33 Patient arrived in ED. gm2 06:45 Marguerite Ruiz, RN is Primary Nurse. kd3 06:47 Triage completed. kd3 06:47 Arm band placed on. kd3 06:48 No provider procedures requiring assistance completed. kd3 06:49 Patient has correct armband on for positive identification. kd3 06:58 Inserted saline lock: 20 gauge in right forearm, using aseptic technique. Blood kd3 collected. Flushed with 10 mL NS. 06:58 Troponin High Sensitivity Sent. kd3 06:58 CBC with Diff Sent. kd3 06:58 CMP Sent. kd3 06:58 Lipase Sent. kd3 07:01 Mingo Aguayo MD is Attending Physician. rn 07:10 Lipase Sent. kd3 07:10 CMP Sent. kd3 07:10 Troponin High Sensitivity Sent. kd3 07:21 Urinalysis w/ reflexes Sent. kd3 07:21 Initial lab(s) drawn, by or, sent to lab. Urine collected: clean catch specimen, clear, kd3 EKG done, by ED staff, reviewed by Mingo Aguayo MD. 08:06 IV discontinued, intact, bleeding controlled, No redness/swelling at site. Pressure ap3 dressing applied. 08:07 Provided Education on: discharge information. ap3 Administered Medications: 07:43 Drug: Ondansetron IVP 4 mg IVP once; over 2 minutes Route: IVP; Site: right forearm; ld1 08:06 Follow up: Response: No adverse reaction ap3 Medication: 06:49 VIS not applicable for this client. kd3 Outcome: 07:47 Discharge ordered by . rn 08:06 Discharged to home ambulatory, ap3 08:06 Condition: good 08:06 Discharge instructions given to patient, Instructed on discharge instructions, follow up and referral plans. medication usage, Demonstrated understanding of instructions, follow-up care, medications, Prescriptions given X 1, 08:07 Patient left the ED. ap3 Signatures: Mingo Aguayo MD MD rn Prokisch, Amanda RN RN ap3 Elba Sandra RN RN ld1 Marguerite Ruiz RN RN kd3 Suze Munguia 2
--- NOTE | 2024-11-20 07:48 | EDPHYS ---
Physician Documentation [facility] Name: Flaco Duarte Age: 54 yrs Sex: Male : 1970 Arrival Date: 11/20/2024 Time: 06:27 Bed 7 Private MD: ED Physician Mingo Aguayo HPI: 11/20 07:28 This 54 yrs old Male presents to ER via Ambulatory with complaints of Nausea. rn 07:28 The patient presents to the emergency department with nausea. Onset: The rn symptoms/episode began/occurred 2 month(s) ago. Possible causes: unknown. The symptoms are aggravated by nothing. The symptoms are alleviated by nothing. Severity of symptoms: At their worst the symptoms were mild in the emergency department the symptoms are unchanged. The patient has experienced similar episodes in the past. Patient reports months of nausea and right upper quadrant pain. Has had multiple CAT scans and ultrasounds and has seen GI with endoscopy. Patient prescribed medication for constipation by GI and as needed Zofran. Patient reports ran out of his Zofran and is now nauseated. Denies any changes in pain. No blood in stool. No vomiting. No fever. No trauma.. Historical: - Home Meds: 06:47 Vraylar oral [Active]; Reglan [Active]; pantoprazole oral [Active]; Ondansetron Oral kd3 [Active]; Depakote Oral [Active]; - PMHx: 06:47 Bipolar disorder; Diverticulitis; gastritis; kd3 - Immunization history:: Adult Immunizations up to date. - Infectious Disease History:: Denies. - Social history:: Smoking status: Patient reports the use of cigarette tobacco products, denies chronic smoking, but will smoke occasionally. - Family history:: not pertinent. - Hospitalizations: : No recent hospitalization is reported. ROS: 07:28 Constitutional: Negative for fever, chills, and weight loss, Cardiovascular: Negative rn for chest pain, palpitations, and edema, Respiratory: Negative for shortness of breath, cough, wheezing, and pleuritic chest pain, Abdomen/GI: Positive for right sided abdominal pain and nausea Back: Negative for injury and pain, MS/Extremity: Negative for injury and deformity, Skin: Negative for injury, rash, and discoloration, Neuro: Negative for headache, weakness, numbness, tingling, and seizure, Exam: 07:28 Constitutional: This is a well developed, well nourished patient who is awake, alert, rn and in no acute distress. Cardiovascular: Bradycardic, regular. No pulse deficits. Respiratory: No increased work of breathing, no retractions or nasal flaring. Abdomen/GI: Soft, mild right mid abdominal tenderness. Negative Silva. No rebound or guarding 07:46 ECG was reviewed by the Attending Physician. rn Vital Signs: 06:45 BP 131 / 89; Pulse 52; Resp 18; Temp 97.5(O); Pulse Ox 98% ; Weight 95.71 kg; Height 5 kd3 ft. 11 in. ; 08:06 BP 112 / 69; Pulse 62; Resp 18; Pulse Ox 98% on R/A; ap3 06:45 Body Mass Index 29.43 (95.71 kg, 180.34 cm) kd3 MDM: 06:54 Medical Screening Exam initiated rt 07:46 Differential diagnosis: Nonspecific abd pain, gastritis, pancreatitis, Chronic rn abdominal pain. Data reviewed: vital signs, nurses notes, old medical records, lab test result(s), and as a result, I will discharge patient. Counseling: I had a detailed discussion with the patient and/or guardian regarding the historical points, exam findings, and any diagnostic results supporting the discharge/admit diagnosis, lab results, the need for outpatient follow up, to return to the emergency department if symptoms worsen or persist or if there are any questions or concerns that arise at home. Response to treatment: the patient's symptoms have mildly improved after treatment, and as a result, I will discharge patient. Special discussion: Based on the patient's Hx, exam, and Dx evaluation, there is no indication for emergent surgery or inpatient Tx. It is understood by the patient/guardian that if the Sx's persist or worsen they need to return immediately for re-evaluation. I discussed with the patient/guardian in detail that at this point there is no indication for admission to the hospital. It is understood, however, that if the symptoms persist or worsen the patient needs to return immediately for re-evaluation. Based on the history and exam findings, there is no indication for further emergent testing or inpatient evaluation. I discussed with the patient/guardian the need to see the bleacher sulfite pulp for further evaluation of the symptoms. ED course: Patient with chronic abdominal pain, stable vital signs, no acute findings and laboratory evaluation. Patient denies gross changes in his abdominal pain and states has been going on for months. Has already had multiple workups including CAT scans ultrasounds and an EGD. Has follow-up appointment with GI in 2 days. Will discharge home with refill of Zofran prescription and given return precautions.. 11/20 06:49 Order name: CBC with Diff; Complete Time: 07:45 rt 11/20 06:49 Order name: CMP; Complete Time: 07:45 rt 11/20 06:49 Order name: Lipase; Complete Time: 07:45 rt 11/20 06:49 Order name: Urinalysis w/ reflexes; Complete Time: 07:45 rt 11/20 06:49 Order name: Troponin High Sensitivity; Complete Time: 07:45 rt 11/20 06:49 Order name: EKG; Complete Time: 06:49 rt 11/20 06:49 Order name: IV Saline Lock; Complete Time: 06:57 rt 11/20 06:49 Order name: Labs collected and sent; Complete Time: 06:58 rt 11/20 06:49 Order name: EKG - Nurse/Tech; Complete Time: 07:21 rt EC:46 Rate is 48 beats/min. Rhythm is regular. QRS [place] is Normal. CA interval is normal. QRS rn interval is normal. QT interval is normal. No Q waves. T waves are Normal. No ST changes noted. Clinical impression: Sinus bradycardia. Interpreted by me. Reviewed by me. Administered Medications: 07:43 Drug: Ondansetron IVP 4 mg IVP once; over 2 minutes Route: IVP; Site: right forearm; ld1 08:06 Follow up: Response: No adverse reaction ap3 Disposition Summary: 11/20/24 07:47 Discharge Ordered Notes: Location: Home rn Problem: chronic rn Symptoms: have improved rn Condition: Stable rn Diagnosis - Nausea rn - Abdominal pain, unspecified rn Followup: rn - With: Private Physician - When: As needed - Reason: Recheck today's complaints, Re-evaluation by your physician Discharge Instructions: - Discharge Summary Sheet rn - Abdominal Pain, Adult rn - Nausea, Adult rn Forms: - Medication Reconciliation Form rn - Antibiotic apparel pattern maker - Prescription Opioid Use rn - Patient Portal Instructions rn - Leadership Thank You Letter rn Prescriptions: - ondansetron 4 mg Oral Tablet,disintegrating - take 1 tablet ORAL route every 8 hours As needed; 14 tablet; Refills: 0, rn Product Selection Permitted Signatures: Dispatcher [employer] Mingo Whitman MD MD rn Sims, Lauren, RN RN ld1 Marguerite Ruiz RN RN kd3 Eleazar Galarza MD MD rt Prokisch, Amanda RN ap3
[2024-11-20 08:11] VITALS: TEMP 97.5; O2SAT 98
[2024-11-20 08:13] VITALS: BP 112/69
--- NOTE | 2024-11-20 10:56 | EKG ---
Test Date: 2024-11-20 Test Time: 07:16:16 [employer] Member: STEPH MEASUREMENT RESULTS: Intervals: Rate: 48 NH: 134 QRSD: 90 QT: 428 QTc: 382 [place]: P: 69 NH: 134 QRS: 41 T: 56 INTERPRETIVE STATEMENTS: Sinus bradycardia Otherwise normal ECG Compared to ECG 08/03/2024 11:47:23 Sinus rhythm no longer present Ventricular premature complex(es) no longer present Electronically Signed On 11-20-24 10:55:37 CDT by Daniel Avila
== END 2024-11-20 08:07 | disposition home or self-care (01) ==
LOC: ER 06:27
DX: R11.0 Nausea (principal); R10.11 Right upper quadrant pain; F17.210 Nicotine dependence, cigarettes, uncomplicated
CPT/HCPCS: 93005; 85025; 81001; 36415; 84484; 83690; 80053; 96374; 99284; J2405

== ENCOUNTER 2024-12-22 15:55 | Observation (INO) | payer OTHER ==
--- OUTSIDE RECORDS SUMMARY | 2024-12-22 15:58 | XMS REPORT | Continuity of Care Document ---
Author Name Unknown Address [address] [facility] [address] [place] [address] [facility] Address [address] [place] [address] Care Team Providers Care Field Observer Name Role Phone MD YASIR WALL Primary Care Physician YASIR WALL Attending Clinician Unavailable KIRIT LINTON Attending Clinician UnavailGRACIE Tripathi Attending Clinician UnavailDONAL Walls Attending Clinician Unavailable AMBREEN_VANDANAA Attending Clinician Unavailable KIRSTIE AUSTIN Attending Clinician Unavailable MILLY TAMAYO Attending Clinician Unavailable AMBREEN_FARNISHA Admitting Clinician Unavailable Payers Payer Name Policy Type Policy Number Effective Date Expirati on Date Source Problems Condition Name Condition Details Condition Category Status Onset Date Resolution Date Last Treatment Date Treating Clinician Comments Source Drug-induc ed constipati on Drug-induc ed Constipati on Problem Active 11-22 00:00: 00 [facility] Bipolar I disorder, most recent episode depression Bipolar I Disorder, Most Recent Episode Depression Problem Active 3- 00:00: 00 [facility] Abdominal pain Problem [facility] Dental caries Problem [facility] Depression Problem [facility] Foreign body of right cornea Problem [facility] Infected dental caries Problem [facility] Laceration of multiple sites of upper extremity Problem [facility] Lightheade dness Problem [facility] Methamphet amine abuse Problem [facility] Nausea Problem [facility] Lung nodule Problem [facility] Allergies, Adverse Reactions, Alerts Allergy Name Allergy Type Status Severity Reaction(s) Onset Date Inactive Date Treating Clinician Comments Source No known drug allergy Miscella neous allergy Active 3 00:00: 00 [facility] Social History Social Habit Start Date Stop Date Quantity Comments Source History of tobacco use [facility] Smoking Status Start Date Stop Date Source Current Every Day Smoker [facility] Medications Ordered Medication Name Filled Medication Name Start Date Stop Date Current Medication? Ordering Clinician Indication Dosage Frequency Signature (SIG) Comments Components Source Omeprazole (Omeprazole 20 Mg *) [address] Omeprazole (Omeprazole 20 Mg *) [address] 03-12 13:28: 00 Yes 1 [facility] Amoxicillin /Clavulanat e Potassium (Augmentin *) 875 Mg TAB Amoxicillin /Clavulanat e Potassium (Augmentin *) 875 Mg TAB 620 14:09: 00 Yes 1 [facility] methocarbam ol 750 mg tablet TAKE 1 TABLET BY MOUTH FOUR TIMES DAILY methocarbam ol 750 mg tablet TAKE 1 TABLET BY MOUTH FOUR TIMES DAILY No methocarba mol 750 mg tablet TAKE 1 TABLET BY MOUTH FOUR TIMES DAILY [facility] Movantik 25 mg tablet TAKE 1 TABLET BY MOUTH EVERY DAY FOR 30 DAYS Movantik 25 mg tablet TAKE 1 TABLET BY MOUTH EVERY DAY FOR 30 DAYS No 1 Q1D Movantik 25 mg tablet TAKE 1 TABLET BY MOUTH EVERY DAY FOR 30 DAYS [facility] ondansetron 4 mg disintegrat [...] 6 HOURS NEEDED FOR VOMITING AND NAUSEA [facility] pantoprazol e 40 mg tablet,ana yed release Take 1 tablet every day by oral route for 30 days. pantoprazol e 40 mg tablet,ana yed release Take 1 tablet every day by oral route for 30 days. No 1 Q1D pantoprazo le 40 mg tablet,del ayed release Take 1 tablet every day by oral route for 30 days. [facility] Vraylar 4.5 mg capsule TAKE 1 CAPSULE BY MOUTH EVERYDAY AT BEDTIME Vraylar 4.5 mg capsule TAKE 1 CAPSULE BY MOUTH EVERYDAY AT BEDTIME No 1capsul e(s) Q1D Vraylar 4.5 mg capsule TAKE 1 CAPSULE BY MOUTH EVERYDAY AT BEDTIME [facility] Vital Signs Vital Name Observation Time Observation Value Comments S ource BP Systolic 2024-11-22 00:00:00 113 mm[Hg] [facility] BP Diastolic 2024-11-22 00:00:00 77 mm[Hg] [facility] Height 2024-11-22 00:00:00 71 [in_i] [facility] Body Weight 2024-11-22 00:00:00 213.6 [lb_av] [facility] BMI (Body Mass Index) 2024-11-22 00:00:00 29.8 kg/m2 [facility] Height 2024-11-12 00:00:00 71 [in_i] [facility] Body Weight 2024-11-12 00:00:00 214 [lb_av] [facility] BMI (Body Mass Index) 2024-11-12 00:00:00 29.8 kg/m2 [facility] BMI (Body Mass Index) 2024-11-08 00:00:00 29.5 kg/m2 [facility] BP Diastolic 2024-11-08 00:00:00 76 mm[Hg] Pineda cardosorda [facility] BP Systolic 2024-11-08 00:00:00 120 mm[Hg] Jose vogel [facility] Height 2024-11-08 00:00:00 71 [in_i] Nery wilcox [facility] Body Weight 2024-11-08 00:00:00 211.8 [lb_av] M katiegofloridalma [facility] Weight 2024-06-17 17:15:00 94.812763 kg [facility] BMI (Body Mass Index) 2024-06-17 17:15:00 29.0 kg/m2 [facility] Height 2024-06-17 17:15:00 180.385319 cm Ma [facility] Encounters Start Date/Time End Date/Time Encounter Type Admission Type Attending [facility] Care Facility Care Department Encounter ID Source 2023-08-16 16:22:26 Inpatient [facility] [id number] [facility] 2023-02-09 10:29:36 Inpatient [facility] [id number] [facility] 2023-01-25 09:41:28 Inpatient [facility] [id number] [facility] 2022-12-02 13:15:43 Inpatient [facility] [id number] [facility] 2022-06-14 14:30:03 Inpatient [facility] [id number] [facility] 2022-06-10 10:32:38 Inpatient [facility] [id number] [facility] 2022-03-29 14:57:51 Inpatient [facility] [id number] [facility] 2024-11-22 00:00:00 2024-11-22 00:00:00 Gabe Campos MD: [address] [place] [address] , Ph. [facility] [id number] 0313 [facility] 2024-11-12 00:00:00 2024-11-12 00:00:00 Fred Erazo MD: [address] [place] [address] , Ph. ([phone]) [facility] [id number] 0303 [facility] 2024-11-08 00:00:00 2024-11-08 00:00:00 Gabe Campos MD: [address] [place] [address] , Ph. [facility] [id number] 0227 [facility] 2024-08-30 07:38:00 2024-08-30 07:38:00 Outpatient YASIR PEOPLES [facility] [id number] [facility] 2024-06-17 17:02:00 2024-06-17 19:20:00 Emergency ER KIRIT LINTON [facility] [id number] [facility] 2024-06-17 17:02:00 2024-06-17 19:20:00 Departed Emergency Room [facility] [id number] [facility] 2024-03-12 10:51:00 2024-03-12 13:35:00 Emergency ER GRACIE CURTIS [facility] [id number] [facility] 2023-09-20 13:07:00 2023-09-20 13:07:00 Outpatient SELF/OTHER INDIVIDUAL QUINNDONAL MORENO SHANNEN PRIDE [id number] [facility] 2022-01-01 09:31:00 2022-01-01 09:31:00 Outpatient SCOTT BEE [facility] [id number] [facility] 2019-03-01 13:50:00 2019-03-01 15:02:00 Emergency ER KIRSTIE AUSTIN [facility] [id number] [facility] 2017-12-16 15:43:00 2017-12-16 23:40:00 Emergency ER KIRSTIE AUSTIN [facility] [id number] [facility] 2015-09-24 18:18:00 2015-09-24 20:43:00 Emergency ER MILLY TAMAYO [facility] [id number] [facility] Results Test Description Test Time Test Comments Results Result Co mments Source [facility] CtrRBC count ur [id number] 18:18:00* Test Item Value Reference Range Interpretation Comme nts Urine RBC (test code = 798-9) 0-2 [facility]trUrine examination for white blood cells (WBC) 2024-06-17 18:18:00* Test Item Value Reference Range Interpretation Comme nts Urine WBC (test code = 621821630) 0-2 [facility] CtrAutomated epithelial cells count in urine sediment (number/area)2024-06-17 18:18:00* Test Item Value Reference Range Interpretation Comme nts Urine Epithelial Cells (test code = 78088-5) 0-2 [facility] CtrBacteria detection in urine sediment by light jlglsncwae5074-98-17 18:18:00* Test Item Value Reference Range Interpretation Comme nts Urine Bacteria (test code = 24642-9) None Seen [facility] CtrColor of Urine by [id number] 18:13:00* Test Item Value Reference Range Interpretation Comme nts Urine Color (test code = 01708-8) Yellow [facility] CtrAppearance of [id number] 18:13:00* Test Item Value Reference Range Interpretation Comme nts Urine Appearance (test code = 5767-9) Clear [facility] CtrUrine glucose qiojqtcaj1051-04-80 18:13:00* Test Item Value Reference Range Interpretation Comme nts Urine Glucose (UA) (test cod e = 2349-9) Negative [facility] CtrBilirubin [id number] 18:13:00* Test Item Value Reference Range Interpretation Comme nts Urine Bilirubin (test code = 893842229) Negative [facility] CtrKetones [id number] 18:13:00* Test Item Value Reference Range Interpretation Comme nts Urine Ketones (test code = 10560970) Negative [facility] CtrSpecific gravity of Urine by Automated test strip 2024-06-17 18:13:00* Test Item Value Reference Range Interpretation Comme nts Urine Specific [place] (test code = 67075-8) 1.016 [facility] blood pcrbtmuzp9018-13-39 18:13:00* Test Item Value Reference Range Interpretation Comme nts Urine Blood (test code = 03761-5) Negative [facility] CtrpH [id number] 18:13:00* Test Item Value Reference Range Interpretation Comme nts Urine pH (test code = 2756-5) 5.500 [facility] CtrProtein [id number] 18:13:00* Test Item Value Reference Range Interpretation Comme nts Urine Protein (test code = 77084266) Negative [facility] CtrUrobilinogen, urine, [id number] 18:13:00* Test Item Value Reference Range Interpretation Comme nts Urine Urobilinogen (test cod e = 424930025) 1.0 [facility] CtrUrine nitrate svaplnpso1392-47-85 18:13:00* Test Item Value Reference Range Interpretation Comme nts Urine Nitrate (test code = 25307-1) Negative [facility] Center[facility] leukocyte esterase qmeduojyc4449-08-01 18:13:00* Test Item Value Reference Range Interpretation Comme nts Urine Leukocyte Esterase (te st code = 610662692) Negative [facility] CtrSerum or plasma cardiac troponin I panel by high sensitivity weibqt4324-08-47 18:04:00* Test Item Value Reference Range Interpretation Comme nts Troponin T High Sensitivity (test code = 42310-3) < 6.0 [facility] CtrBilirubin fqdje5172-30-17 18:02:00* Test Item Value Reference Range Interpretation Comme nts Total Bilirubin (test code = RBP9563) 0.8 [facility] CtrSerum or plasma urea nitrogen measurement (mass/volume)2024-06-17 18:02:00* Test Item Value Reference Range Interpretation Comme nts Blood Urea Nitrogen (test co de = 3094-0) 9 [facility] BwfYHF7779-85-27 18:02:00* Test Item Value Reference Range Interpretation Comme nts Aspartate Amino Transf (AST/ SGOT) (test code = KKJ7732) 16 [facility] CtrCreatinine [id number] 18:02:00* Test Item Value Reference Range Interpretation Comme nts Creatinine (test code = 626927878) 0.96 [facility] CtrEstimated glomerular filtration rate (GFR) wasqlyhricqdc0420-31-26 18:02:00* Test Item Value Reference Range Interpretation Comme nts Glomerular Filtration Rate C alc (test code = 297497939) > 60.00 [facility] CtrBUN/creatinine solgp9501-76-81 18:02:00* Test Item Value Reference Range Interpretation Comme nts BUN/Creatinine Ratio (test c ode = 03566882) 9.4 [facility] CtrBody fluid potassium mfllikeonym5330-45-77 18:02:00* Test Item Value Reference Range Interpretation Comme nts Potassium Level (test code = 2821-7) 4.0 [facility] PokVR94681-28-20 18:02:00* Test Item Value Reference Range Interpretation Comme nts Carbon Dioxide Level (test c ode = 62382989) 25 [facility] CtrAnion gap bvsyklaqlmm7761-86-72 18:02:00* Test Item Value Reference Range Interpretation Comme nts Anion Gap (test code = 15763281) 15.0 [facility] CtrCalcium vnfch3754-05-52 18:02:00* Test Item Value Reference Range Interpretation Comme nts Calcium Level (test code = 83052338) 9.4 [facility] KkcZktjbkzwd4452-17-16 18:02:00* Test Item Value Reference Range Interpretation Comme nts Magnesium Level (test code = 67385939) 2.1 [facility] CtrGlobulin [id number] 18:02:00* Test Item Value Reference Range Interpretation Comme nts Globulin (test code = 113175040) 3.2 [facility] CtrALT (SGPT) ser/albn7522-77-87 18:02:00* Test Item Value Reference Range Interpretation Comme nts Alanine Aminotransferase (AL T/SGPT) (test code = 1742-6) 18 [facility] WjzMbaqos2219-22-56 18:02:00* Test Item Value Reference Range Interpretation Comme nts Lipase (test code = 09156460) 14 [facility] CtrALP ser/lqsk1447-38-85 18:02:00* Test Item Value Reference Range Interpretation Comme nts Total Alkaline Phosphatase ( test code = 6768-6) 127 [facility] CtrAbsolute eosinophil cjvos0006-12-54 17:43:00* Test Item Value Reference Range Interpretation Comme nts Eosinophils # (Auto) (test c ode = EBC3227) 0.34 [facility] CtrRBC cbayl6966-51-47 17:43:00* Test Item Value Reference Range Interpretation Comme nts Red Blood Count (test code = 68387470) 5.06 [facility] NxbJkeynzjccs7593-90-36 17:43:00* Test Item Value Reference Range Interpretation Comme nts Hematocrit (test code = 67126477) 46.3 [facility] CtrMCV (mean corpuscular volume) determination 2024-06-17 17:43:00* Test Item Value Reference Range Interpretation Comme [facility] Mean Corpuscular Volume (daniel t code = 02094-6) 91.5 [facility] CtrMean corpuscular hemoglobin (MCH) determination 2024-06-17 17:43:00* Test Item Value Reference Range Interpretation Comme nts Mean Corpuscular Hemoglobin (test code = 28733297) 29.4 [facility] CtrMean corpuscular hemoglobin concentration (MCHC) geradjinsunld2388-30-36 17:43:00* Test Item Value Reference Range Interpretation Comme [facility] Mean Corpuscular Hemoglobin Concent (test code = 11320475) 32.2 [facility] CtrErythrocyte distribution width coefficient of wccebwxvz2059-56-38 17:43:00* Test Item Value Reference Range Interpretation Comme [facility] Red Cell Distribution Width (test code = 28369733) 13.5 [facility] CtrPlatelet igxko0623-61-29 17:43:00* Test Item Value Reference Range Interpretation Comme [facility] Platelet Count (test code = 52875485) 395 [facility] CtrMean platelet timbwx5786-93-42 17:43:00* Test Item Value Reference Range Interpretation Comme [facility] Mean Platelet Volume (test c ode = 98290294) 10.2 [facility] CtrNeutrophils seg % [id number] 17:43:00* Test Item Value Reference Range Interpretation Comme [facility] Neutrophils (%) (Auto) (test code = 51009-1) 61.0 [facility] CenterAbsolute immature granulocyte twssy7223-74-95 17:43:00* Test Item Value Reference Range Interpretation Comme [facility] Absolute Immature Granulocyt e (auto (test code = 22684-0) 0.03 [facility] CenterBlood band neutrophils count (number/volume) 2024-06-17 17:43:00* Test Item Value Reference Range Interpretation Comme nts Neutrophils # (Auto) (test c ode = 48779-2) 5.89 [facility] CtrAbsolute lymphocyte nhzvh5270-35-26 17:43:00* Test Item Value Reference Range Interpretation Comme nts Lymphocytes # (Auto) (test c ode = 63649-0) 2.80 [facility] CtrAbsolute basophil nqqdf9086-97-19 17:43:00* Test Item Value Reference Range Interpretation Comme [facility] Basophils # (Auto) (test cod e = 85612254) 0.07 [facility] CenterAbsolute NRBC [id number] 17:43:00* Test Item Value Reference Range Interpretation Comme [facility] Nucleated Red Blood Cells # (test code = 196510905) 0 [facility] Notes <thead> Date/Time Note Provider Source [facility] Mgb2428-33-95 04:39:49 Follow up with your primary care doctor and be sure to acquire your medical records from [facility] as discussed. sister superior the medications prescribed by your PCP and [...] NO PHYSICIAN YASIR WALL MD Work Phone: [facility] [address] [facility] [id number] NO PHYSICIAN NO PHYSICIAN Future Procedures <thead> [...] Dental Caries, Adult, Easy-t o-Read Dental Pain, Vazb-na-Kofi Abdominal Pain, Adult, Easy- to-Read Pulmonary Nodule, Easy-to-Re ad Nausea, Adult, Bxcb-pk-Ikfd Eye Foreign Body, Easy-to-Re ad [facility]
[2024-12-22] MEDS ORDERED: ONDANSETRON 4 MG/2 ML VIAL ONE ×2 (16:26→18:17)
[2024-12-22] MEDS ORDERED: KETOROLAC 30 MG/ML INJ ONE (16:26)
[2024-12-22] MEDS ORDERED: FAMOTIDINE 20 MG/2 ML VIAL IV ONE (16:26)
[2024-12-22] MEDS ORDERED: NA CHLORIDE 0.9% 1,000 ML ONE ×2 (16:27→18:31)
[2024-12-22 16:31] LABS: Absolute Basophils 0.1 K/uL (0-0.5); Absolute Eosinophils 0.2 K/uL (0-0.5); Absolute Lymphocytes (CBC) 3.3 K/uL (0.7-4.9); Absolute Monocytes 0.9 K/uL (0.1-1.3); Absolute Neutrophil 7.2 K/uL (1.8-8.0); Basophils % 0.8 % (0-1.3); Eosinophils % 1.6 % (0-4.4); Hematocrit 47.4 % (39.6-49.0); Hemoglobin 16.1 g/dL (13.6-17.9); Lymphocytes % 28.2 % (15.3-44.8); MCH 29.7 pg (27.0-35.0); MCV 87.3 fL (80-100); MPV 7.9 fL (7.6-11.3); Monocytes % 7.8 % (3.3-12.3); Neutrophils % 61.6 % (41.7-73.7); Nucleated Red Blood Cells % 0.1 % (0-0); Platelets 336 thou/uL (152-406); RBC Red Blood Cell Count 5.43 M/uL (4.33-5.43); Red Cell Distribution Width 13.9 % (12.1-15.2)
[2024-12-22 16:48] LABS: ALT/SGPT 18 U/L (16-61); Albumin 3.6 g/dL (3.4-5.0); Albumin/Globulin Ratio 0.9 (1.1-1.8); Alkaline Phosphatase 95 U/L (45-117); Anion Gap 7.4 mEq/L (5.0-15.0); BUN Blood Urea Nitrogen 13 mg/dL (7-18); Bicarbonate 27 mEq/L (21-32); Bilirubin Total 1.2 mg/dL (0.2-1.0); Glomerular Filtration Rate 64 ml/min (=/>90); Glucose Level 99 mg/dL (74-106); Lipase 20 U/L (13-75); Potassium 3.4 mEq/L (3.5-5.1); Protein, Total 7.6 g/dL (6.4-8.2); Sodium Level 137 mEq/L (136-145)
[2024-12-22 16:50] LABS: AST/SGOT < 10 U/L (15-37)
--- NOTE | 2024-12-22 17:49 | RAD REPORT ---
EXAMINATION: CT ABDOMEN AND PELVIS WITH CONTRAST CLINICAL INDICATION: Abdominal pain TECHNIQUE: CT abdomen and pelvis was performed, after the administration of 100 cc Isovue-300.. Sagit nagi and coronal reconstructions were obtained. One or more of the following dose reduction techniques were used: Automated exposure control, adjustment of the mA and kV according to patient si ze, and iterative reconstruction. Unless otherwise specified, incidental findings do not require dedicated imaging follow-up. [id number]. Oral contrast was not given which limits evaluation of bowel and appendix. COMPARISON: .2023 FINDINGS: Liver, spleen, pancreas, adrenals and kidneys appear unremarkable 2 cm duodenal diverticulum No evidence of diverticulitis. Loops of jejunum and ileum are mildly dilated and fluid-filled. Fluid is present within the colon. Bladder wall appears thickened. Small left inguinal hernia : IMPRESSION: Fluid within mildly dilated small bowel probably an enteritis. A partial small bowel obstruction coul d also have this appearance. If the patient's symptoms persist then follow-up imaging would be recommended. Bladder wall appears thickened. This could be secondary to incomplete distention or inflammation.
[2024-12-22] MEDS ORDERED: MORPHINE 4 MG/ML SYR ONE (18:17)
--- NOTE | 2024-12-22 18:29 | EDPHYS ---
Physician Documentation [facility] Name: Flaco Duarte Age: 54 yrs Sex: Male : 1970 Arrival Date: 12/22/2024 Time: 15:55 Bed 7 Private MD: ED Physician Eleazar Galarza HPI: 12/22 16:15 This 54 yrs old Male presents to ER via Ambulatory with complaints of Abdominal Pain, cp Vomiting/Diarrhea. 16:15 The patient presents with abdominal pain that is diffuse, abdominal distention that is cp diffuse. Onset: The symptoms/episode began/occurred 2 day(s) ago. 16:15 Associated signs and symptoms: Pertinent positives: nausea, vomiting, and diarrhea. cp 16:15 patient reports pcp diagnosed him with constipation and started him on lactulose cp yesterday. Historical: - Allergies: 16:08 No Known Allergies; cm10 - Home Meds: 16:08 Depakote Oral [Active]; Ondansetron Oral [Active]; pantoprazole oral [Active]; Reglan cm10 [Active]; Vraylar oral [Active]; - PMHx: 16:08 Bipolar disorder; Diverticulitis; gastritis; cm10 - Immunization history:: Adult Immunizations up to date. - Infectious Disease History:: Denies. - Social history:: Smoking status: unknown. ROS: 16:15 Constitutional: Positive for poor PO intake, Negative for body aches, chills, fever, cp 16:15 Eyes: Negative for injury, pain, redness, and discharge, cp 16:15 ENT: Negative for drainage from ear(s), ear pain, sore throat, difficulty swallowing, difficulty handling secretions, 16:15 Cardiovascular: Negative for chest pain, palpitations, 16:15 Respiratory: Negative for cough, shortness of breath, wheezing, 16:15 Abdomen/GI: Positive for abdominal pain, nausea, vomiting, and diarrhea, Negative for hematemesis, black/tarry stool, rectal bleeding, 16:15 Neuro: Negative for altered mental status, dizziness, headache, syncope, near syncope, weakness, 16:15 All other systems are negative, Exam: 16:20 Constitutional: The patient appears in no acute distress, alert, awake, cp non-diaphoretic, non-toxic, well developed, well nourished, uncomfortable, 16:20 Head/Face: Normocephalic, atraumatic. cp 16:20 Eyes: Periorbital structures: appear normal, Conjunctiva: normal, no exudate, no injection, Sclera: no appreciated abnormality, Lids and lashes: appear normal, bilaterally, 16:20 ENT: External ear(s): are unremarkable, Nose: is normal, Mouth: Lips: moist, Oral mucosa: moist, Posterior pharynx: Airway: no evidence of obstruction, patent, 16:20 Chest/axilla: Inspection: normal, 16:20 Cardiovascular: Rate: normal, Rhythm: regular, Edema: is not appreciated, JVD: is not appreciated, 16:20 Respiratory: the patient does not display signs of respiratory distress, Respirations: normal, no use of accessory muscles, no retractions, labored breathing, is not present, Breath sounds: are clear throughout, no decreased breath sounds, no stridor, no wheezing, 16:20 Abdomen/GI: Inspection: distension, that is mild, Bowel sounds: active, all quadrants, Palpation: soft, in all quadrants, moderate abdominal tenderness, in all quadrants, rebound tenderness, is not appreciated, involuntary guarding, is not appreciated, 16:20 Back: pain, is absent, ROM is normal, 16:20 Neuro: Orientation: to person, place \T\ time. Mentation: is normal, Motor: moves all fours, strength is normal, Gait: is steady, Vital Signs: 16:06 BP 125 / 90; Pulse 98; Resp 18; Temp 97; Pulse Ox 100% on R/A; Weight 93.44 kg; Height cm10 5 ft. 11 in. ; Pain 9/10; 16:34 BP 122 / 92; Pulse 73; Resp 15; Pulse Ox 97% ; jl7 17:02 BP 128 / 85; Pulse 57; Resp 18 S; Pulse Ox 97% on R/A; aa5 18:00 BP 121 / 81; Pulse 56; Resp 16 S; Pulse Ox 99% on R/A; aa5 19:15 BP 135 / 70; Pulse 56; Resp 16; Pulse Ox 98% ; cp4 20:31 BP 120 / 67; Pulse 53; Resp 16; Pulse Ox 98% ; cp4 16:06 Body Mass Index 28.73 (93.44 kg, 180.34 cm) cm10 16:06 Pain Scale: Adult cm10 MDM: 16:06 Medical Screening Exam initiated cp 18:30 Data reviewed: vital signs, nurses notes, lab test result(s), EKG, radiologic studies, cp CT scan, and as a result, I will admit patient. 18:30 Differential diagnosis: appendicitis, bowel obstruction, cholecystitis, Cholelithiasis, cp diverticulitis, gastritis, non-specific abd pain, pancreatitis, Peptic Ulcer Disease, Perf. Duodenal Ulcer, Perf. Gastric Ulcer, Ureterolithiasis, urinary tract infection. Management of patient was discussed with the following: Cyanide Case Hardener: DR Smith who will consult for general surgery and DR Franklin, hospitalist, will admit after discussion. 12/22 16:10 Order name: CBC with Diff; Complete Time: 17:23 12/22 17:23 Interpretation: Normal except: WBC 11.70. 12/22 16:10 Order name: CMP; Complete Time: 17:23 12/22 17:23 Interpretation: Normal except: K 3.4; CRE 1.33; GFR 64; BILIT 1.2; AST < 10; GLOB 4.0; cp A/G 0.9. 12/22 16:10 Order name: Lipase; Complete Time: 17:23 12/22 16:10 Order name: Urinalysis w/ reflexes 12/22 19:17 Order name: Basic Metabolic Panel [facility] 12/22 19:17 Order name: Basic Metabolic Panel [facility] 12/22 19:17 Order name: CBC with Automated Diff [facility] 12/22 19:17 Order name: CBC with Automated Diff [facility] 12/22 16:19 Order name: CT Abd/Pelvis - IV Contrast Only; Complete Time: 18:16 12/22 18:17 Interpretation: Report reviewed. 12/22 18:45 Order name: Abdomen W Erect [facility] 12/22 19:18 Order name: Abdomen 1 View (KUB) [facility] 12/22 19:18 Order name: Abdomen 1 View (KUB) [facility] 12/22 19:17 Order name: CONS Physician Consult [facility] 12/22 16:10 Order name: IV Saline Lock; Complete Time: 16:34 12/22 16:10 Order name: Labs collected and sent; Complete Time: 16:34 cp Administered Medications: 16:29 Drug: NS 0.9% IV 1000 ml IV at 1 bolus Per protocol; to be given as a bolus over 60 jl7 minutes Route: IV; Rate: 1 bolus; Site: right antecubital; 17:30 Follow up: Response: No adverse reaction; IV Status: Completed infusion; IV Intake: jl7 1000ml 16:31 Drug: Ketorolac IVP 15 mg IVP once Route: IVP; Site: right antecubital; jl7 17:00 Follow up: Response: No adverse reaction aa5 16:33 Drug: Famotidine IVP 20 mg IVP once; dilute with 10 mL 0.9% NaCl; give over 2 minutes jl7 Route: IVP; Site: right antecubital; 17:00 Follow up: Response: No adverse reaction aa5 16:34 Drug: Ondansetron IVP 4 mg IVP once; over 2 minutes Route: IVP; Site: right antecubital;jl7 17:00 Follow up: Response: No adverse reaction aa5 18:21 Drug: morphine IVP or IV 4 mg IVP once over 4 mins Route: IVP; Infused Over: 4 mins; [facility] Site: right antecubital; 19:06 Follow up: Response: No adverse reaction 7 18:21 Drug: Ondansetron IVP 4 mg IVP once; over 2 minutes Route: IVP; Site: right antecubital;jl7 19:07 Follow up: Response: No adverse reaction 7 18:30 Drug: NS 0.9% IV 1000 ml IV at 1 bolus Per protocol; to be given as a bolus over 60 jl7 minutes Route: IV; Rate: 1 bolus; Site: right antecubital; 20:33 Follow up: IV Status: Completed infusion cp4 18:30 Drug: Ciprofloxacin IVPB 400 mg 200 ml IVPB once over 60 mins Volume: 200 ml; Route: jl7 IVPB; Infused Over: 60 mins; Site: right antecubital; 20:33 Follow up: IV Status: Completed infusion cp4 18:30 Drug: metroNIDAZOLE IVPB 500 mg 100 ml IVPB once over 30 mins Volume: 100 ml; Route: jl7 IVPB; Infused Over: 30 mins; Site: right antecubital; 20:33 Follow up: IV Status: Completed infusion cp4 Disposition: 20:35 Co-signature as Attending Physician, Eleazar Galarza MD I reviewed the patient's care rt provided by the Advanced Practice Provider and agree with the diagnosis and treatment plan. Disposition Summary: 12/22/24 18:29 Hospitalization Ordered Notes: Hospitalization Status: Inpatient Admission cp Provider: Clay Franklin cp Location: Telemetry/MedSurg (Inpatient) cp Condition: Stable cp Problem: new cp Symptoms: have improved cp Bed/Room Type: Standard cp Room Assignment: 218(12/22/24 18:49) eb Diagnosis - Nausea with vomiting, unspecified cp - Diarrhea, unspecified cp - Partial Small Bowel Obstruction cp - Partial Small Bowel Obstruction vs Enteritis cp Forms: - Medication Reconciliation Form cp - SBAR form cp - Leadership Thank You Letter cp Signatures: Dispatcher [employer] EDMS Shade Saul PA PA cp Leal, Jahala RN RN jl7 Isabel Phillips Ryan, MD MD rt Maylin Camarillo RN RN cm10 Sada Camarena RN aa5 Zuleima Whitley cp4 Corrections: (The following items were deleted from the chart) 18:49 18:29 cp eb
--- NOTE | 2024-12-22 18:29 | ER ---
Nurse's Notes [facility] Name: Flaco Duarte Age: 54 yrs Sex: Male : 1970 Arrival Date: 12/22/2024 Time: 15:55 Bed 7 Private MD: Diagnosis: Nausea with vomiting, unspecified;Diarrhea, unspecified;Partial Small Bowel Obstruction vs Enteritis Presentation: 12/22 16:06 Chief complaint: Patient states: Abdominal pain, vomiting and diarrhea onset 2 days cm10 ago. pt states that he saw his pcp yesterday and was diagnosed with constipation and given lactulose. Coronavirus screen: Client denies travel out of the [place] in the last 14 days. Ebola Screen: Patient denies travel to an Ebola-affected area in the 21 days before illness onset. Initial Sepsis Screen: Does the patient meet any 2 criteria? HR > 90 bpm. Does the patient have a suspected source of infection? No. Patient's initial sepsis screen is negative. Risk Assessment: Do you want to hurt yourself or someone else? Patient reports no desire to harm self or others. Onset of symptoms was December 22, 2024. 16:06 Method Of Arrival: Ambulatory cm10 16:06 Acuity: DEYSI 3 cm10 Triage Assessment: 16:09 General: Appears in no apparent distress. uncomfortable, Behavior is calm, cooperative. cm10 Neuro: No deficits noted. Level of Consciousness is awake, alert, obeys commands, Oriented to person, place, time, situation, Appropriate for age. Respiratory: Airway is patent Respiratory effort is even, unlabored, Respiratory pattern is regular, symmetrical. GI: Abdomen is round. Historical: - Allergies: 16:08 No Known Allergies; cm10 - Home Meds: 16:08 Depakote Oral [Active]; Ondansetron Oral [Active]; pantoprazole oral [Active]; Reglan cm10 [Active]; Vraylar oral [Active]; - PMHx: 16:08 Bipolar disorder; Diverticulitis; gastritis; cm10 - Immunization history:: Adult Immunizations up to date. - Infectious Disease History:: Denies. - Social history:: Smoking status: unknown. Screenin:35 [place] [facility] Fall Risk Assessment (Adult) History of falling in the last 3 months, jl7 including since admission No falls in past 3 months (0 pts) Confusion or Disorientation No (0 pts) Intoxicated or Sedated No (0 pts) Impaired Gait No (0 pts) Mobility Assist Device Used No (0 pt) Altered Elimination No (0 pt) Score/Fall Risk Level 0 - 2 = Low Risk Oriented to surroundings, Maintained a safe environment. Abuse screen: Denies threats or abuse. Denies injuries from another. Nutritional screening: No deficits noted. Tuberculosis screening: No symptoms or risk factors identified. Assessment: 16:20 General: Appears uncomfortable, Behavior is calm, cooperative. Pain: Complains of pain aa5 in right upper quadrant, left upper quadrant, right lower quadrant and left lower quadrant Pain does not radiate. Pain currently is 9 out of 10 on a pain scale. Quality of pain is described as crampy, Pain began 2-3 days ago. Is intermittent. Neuro: Level of Consciousness is awake, alert, obeys commands, Oriented to person, place, time, situation. Cardiovascular: Patient's skin is warm and dry. Respiratory: Airway is patent Respiratory effort is even, unlabored, Respiratory pattern is regular, symmetrical. GI: Abdomen is round non-distended, Bowel sounds present X 4 quads. Abd is soft X 4 quads Abdomen is tender to palpation X 4 quads. Reports diarrhea, nausea, vomiting, x 2 days ago. : No signs and/or symptoms were reported regarding the genitourinary system. EENT: No signs and/or symptoms were reported regarding the EENT system. Derm: Skin is pink, warm \T\ dry. Musculoskeletal: Range of motion: intact in all extremities. 17:02 Reassessment: Patient is alert, oriented x 3, equal unlabored respirations, skin aa5 warm/dry/pink. 17:55 Reassessment: Patient is alert, oriented x 3, equal unlabored respirations, skin aa5 warm/dry/pink. 19:15 Reassessment: Patient appears in no apparent distress at this time. No changes from cp4 previously documented assessment. Patient and/or family updated on plan of care and expected duration. Pain level reassessed. Patient is alert, oriented x 3, equal unlabored respirations, skin warm/dry/pink. Vital Signs: 16:06 BP 125 / 90; Pulse 98; Resp 18; Temp 97; Pulse Ox 100% on R/A; Weight 93.44 kg; Height cm10 5 ft. 11 in. ; Pain 9/10; 16:34 BP 122 / 92; Pulse 73; Resp 15; Pulse Ox 97% ; jl7 17:02 BP 128 / 85; Pulse 57; Resp 18 S; Pulse Ox 97% on R/A; aa5 18:00 BP 121 / 81; Pulse 56; Resp 16 S; Pulse Ox 99% on R/A; aa5 19:15 BP 135 / 70; Pulse 56; Resp 16; Pulse Ox 98% ; cp4 20:31 BP 120 / 67; Pulse 53; Resp 16; Pulse Ox 98% ; cp4 16:06 Body Mass Index 28.73 (93.44 kg, 180.34 cm) cm10 16:06 Pain Scale: Adult cm10 ED Course: 15:58 Patient arrived in ED. im 16:00 Shade Saul PA is PHCP. cp 16:00 Eleazar Galarza MD is Attending Physician. cp 16:08 Triage completed. cm10 16:08 Arm band placed on right wrist. Patient placed in an exam room, on a stretcher. cm10 16:18 Sada Camarena, ISHA is Primary Nurse. aa5 16:20 Initial lab(s) drawn, by de, sent to lab. aa5 16:20 Inserted saline lock: 20 gauge in right antecubital area, using aseptic technique. aa5 Blood collected. Flushed with 10 mL NS . 16:35 Patient has correct armband on for positive identification. Bed in low position. Call jl7 light in reach. Side rails up X 1. Provided Education on: use of call chang. 17:02 No provider procedures requiring assistance completed. aa5 17:36 CT Abd/Pelvis - IV Contrast Only In Process Unspecified. EDMS 18:27 Clay Franklin MD is Hospitalizing Provider. cp 19:00 Report given to ISHA Dewey and ISHA HUMPHREY. aa5 20:34 Patient admitted, IV remains in place. cp4 Administered Medications: 16:29 Drug: NS 0.9% IV 1000 ml IV at 1 bolus Per protocol; to be given as a bolus over 60 jl7 minutes Route: IV; Rate: 1 bolus; Site: right antecubital; 17:30 Follow up: Response: No adverse reaction; IV Status: Completed infusion; IV Intake: jl7 1000ml 16:31 Drug: Ketorolac IVP 15 mg IVP once Route: IVP; Site: right antecubital; jl7 17:00 Follow up: Response: No adverse reaction aa5 16:33 Drug: Famotidine IVP 20 mg IVP once; dilute with 10 mL 0.9% NaCl; give over 2 minutes jl7 Route: IVP; Site: right antecubital; 17:00 Follow up: Response: No adverse reaction aa5 16:34 Drug: Ondansetron IVP 4 mg IVP once; over 2 minutes Route: IVP; Site: right antecubital;jl7 17:00 Follow up: Response: No adverse reaction aa5 18:21 Drug: morphine IVP or IV 4 mg IVP once over 4 mins Route: IVP; Infused Over: 4 mins; jl7 Site: right antecubital; 19:06 Follow up: Response: No adverse reaction jl7 18:21 Drug: Ondansetron IVP 4 mg IVP once; over 2 minutes Route: IVP; Site: right antecubital;jl7 19:07 Follow up: Response: No adverse reaction jl7 18:30 Drug: NS 0.9% IV 1000 ml IV at 1 bolus Per protocol; to be given as a bolus over 60 jl7 minutes Route: IV; Rate: 1 bolus; Site: right antecubital; 20:33 Follow up: IV Status: Completed infusion cp4 18:30 Drug: Ciprofloxacin IVPB 400 mg 200 ml IVPB once over 60 mins Volume: 200 ml; Route: jl7 IVPB; Infused Over: 60 mins; Site: right antecubital; 20:33 Follow up: IV Status: Completed infusion cp4 18:30 Drug: metroNIDAZOLE IVPB 500 mg 100 ml IVPB once over 30 mins Volume: 100 ml; Route: jl7 IVPB; Infused Over: 30 mins; Site: right antecubital; 20:33 Follow up: IV Status: Completed infusion cp4 Medication: 17:00 VIS not applicable for this client. aa5 Intake: 17:30 IV: 1000ml; Total: 1000ml. jl7 Outcome: 18:29 Decision to Hospitalize by Provider. cp 20:34 Admitted to Med/surg accompanied by tech, via stretcher, with chart, cp4 20:34 Condition: stable 20:34 Instructed on the need for admit, 20:34 Patient left the ED. cp4 Signatures: Dispatcher [employer] EDMS Sada Camarena RN RN aa5 Shade Saul PA PA cp Leal, Jahala, RN RN jl7 Yesenia Todd Clarissa, RN RN cm10 Zuleima Whitley cp4 Corrections: (The following items were deleted from the chart) 17:00 16:35 Initial lab(s) drawn, by dental laboratory technician, sent to lab. angel holguin 17:00 16:35 Inserted saline lock: 20 gauge in right antecubital area, using aseptic aa5 technique. Blood collected. Flushed with 10 mL NS inserted by ISHA Tomlin 17:00 16:20 Inserted saline lock: 20 gauge in right antecubital area, using aseptic aa5 technique. Blood collected. Flushed with 10 mL NS inserted by ISHA Tomlin5
[2024-12-22] MEDS ORDERED: METRONIDAZOLE 500mg IVPB 500 MG/100 ML BAG IV ONE (18:31)
[2024-12-22] MEDS ORDERED: CIPROFLOXACIN 400mg IV 400 MG/200 ML BAG IV ONE (18:31)
[2024-12-22] MEDS ORDERED: ONDANSETRON 4 MG/2 ML VIAL IV PRN (19:08)
--- NOTE | 2024-12-22 19:18 | P.HP ---
Patient History Date of Service: 12/22/24 Reason for admission: partial SBO History of Present Illness: 54 year old male with a PMH of bipolar disorder presenting with vomitting and diarrhea for the last 2 days. Associated symptoms include abdominal cramping and no appetite. He Denies fevers, chills, and exposure to sick contacts. He rates the pain as an 9/10. He denies any abdominal surgeries in the past. He denies illicit drug use. He was taking tylenol #4 however he ran out of this medic ation. He is also on depakote. He is applying for disability. Allergies No Known Allergies Allergy (Unverified 12/22/24 21:04) Review of Systems General: Unremarkable Eyes: Unremarkable ENT: Unremarkable Respiratory: Unremarkable Cardiovascular: Unremarkable Gastrointestinal: Nausea, Vomiting, Abdominal Pain, Diarrhea, Distention Genitourinary: Unremarkable Musculoskeletal: Unremarkable Integumentary: Unremarkable Physical Examination - Physical Exam General: Alert, Mild distress HEENT: Normocephalic Neck: Supple Respiratory: Clear to auscultation bilaterally Cardiovascular: No edema Capillary refill: <2 Seconds Gastrointestinal: Hyperactive (high pitched ) Musculoskeletal: No clubbing Integumentary: No rashes Neurological: Normal speech Lymphatics: No axilla or inguinal lymphadenopathy - Studies Laboratory Data (last 24 hrs) 12/22/24 12/22/24 16:25 16:25 WBC 11.70 H Hgb 16.1 Hct 47.4 Plt Count 336 Sodium 137 Potassium 3.4 L BUN 13 Creatinine 1.33 H Glucose 99 Total Bilirubin 1.2 H AST < 10 L ALT 18 Alkaline Phosphatase 95 Lipase 20 Assessment and Plan - Plan Partial SBO Bipolar disorder NPO, NG, surgery consult continue flagyl and yariro KUB in the AM monitor electrolytes CBC and BMP in the am hold depakote DVT px with SCDs - Advance Directives Does patient have a Living Will: No Does patient have a Durable POA for Healthcare: No
[2024-12-22] MEDS: NA CHLORIDE 0.9% 1,000 ML IV SCH (21:39)
[2024-12-22 21:54] VITALS: O2SAT 98
[2024-12-22] MEDS: MORPHINE 2 MG/ML SYR IV PRN (22:14)
[2024-12-23 00:08] VITALS: BMI 28.8
[2024-12-23] MEDS: METRONIDAZOLE 500mg IVPB 500 MG/100 ML BAG IV SCH (00:38)
[2024-12-23 05:10] LABS: Absolute Eosinophils 0.3 K/uL (0-0.5); Absolute Lymphocytes (CBC) 2.8 K/uL (0.7-4.9); Absolute Monocytes 0.7 K/uL (0.1-1.3); Absolute Neutrophil 3.8 K/uL (1.8-8.0); Basophils % 0.6 % (0-1.3); Eosinophils % 4.5 % (0-4.4); Hematocrit 39.4 % (39.6-49.0); Hemoglobin 13.3 g/dL (13.6-17.9); Lymphocytes % 36.4 % (15.3-44.8); MCH 29.8 pg (27.0-35.0); MCHC 33.7 g/dL (32.0-36.0); MCV 88.3 fL (80-100); Monocytes % 9.4 % (3.3-12.3); Neutrophils % 49.1 % (41.7-73.7); Nucleated Red Blood Cells % 0.1 % (0-0); Platelets 251 thou/uL (152-406); RBC Red Blood Cell Count 4.47 M/uL (4.33-5.43)
[2024-12-23 05:23] LABS: Anion Gap 6.4 mEq/L (5.0-15.0); Potassium 4.4 mEq/L (3.5-5.1)
--- NOTE | 2024-12-23 08:44 | RAD REPORT ---
EXAM: XR Abdomen 1 View (KUB) HISTORY: [facility] MAIN evaluate SBO COMPARISON: CT abdomen and pelvis 12/23/2023 FINDINGS: Single view of the abdomen demonstrating central abdominal relatively short segment distend ed loop of bowel measuring up to 5.4 cm in caliber. Otherwise improved pattern of small bowel distention. No suspicious calcifications are seen. The bones are unremarkable. Excreted contrast i n the bladder IMPRESSION: Residual short segment distended loop of bowel, which may relate to improving obstruction or could alternatively relate to colonic distention.
[2024-12-23] MEDS: CIPROFLOXACIN 400mg IV 400 MG/200 ML BAG IV SCH (09:30)
--- NOTE | 2024-12-23 11:15 | P.DS ---
Admission Date: 12/22/24 Discharge Date: 12/23/24 Disposition: ROUTINE DISCHARGE Discharge Condition: GOOD Reason for Admission: partial SBO Brief History of Present Illness: Patient admitted with nausea vomiting diarrhea Hospital Course: Patient is 54 years of age admitted with acute onset of abdominal discomfort nausea and diarrhea possible subacute bowel obstruction was seen by Dr. Smith felt that he may be gastroenteritis at the time of discharge he was alert oriented doing well his abdominal discomfort had decreased significantly labs chemistries all reviewed patient tolerated diet and was discharged CT scan possible nonspecific enteritis of the abdomen Vital Signs/Physical Exam: Temp Pulse Resp BP Pulse Ox 97.7 F 42 L 18 115/65 99 12/23/24 08:00 12/23/24 08:00 12/23/24 08:00 12/23/24 08:00 12/23/24 08:00 Laboratory Data at Discharge: WBC 7.70 thou/uL (4.3-10.9) 12/23/24 04:55 Hgb 13.3 g/dL (13.6-17.9) L D 12/23/24 04:55 Hct 39.4 % (39.6-49.0) L 12/23/24 04:55 Plt Count 251 thou/uL (152-406) 12/23/24 04:55 Sodium 140 mEq/L (136-145) 12/23/24 04:55 Potassium 4.4 mEq/L (3.5-5.1) D 12/23/24 04:55 BUN 12 mg/dL (7-18) 12/23/24 04:55 Creatinine 1.02 mg/dL (0.70-1.30) 12/23/24 04:55 Glucose 93 mg/dL (74-106) 12/23/24 04:55 Total Bilirubin 1.2 mg/dL (0.2-1.0) H 12/22/24 16:25 AST < 10 U/L (15-37) L 12/22/24 16:25 ALT 18 U/L (16-61) 12/22/24 16:25 Alkaline Phosphatase 95 U/L (45-117) 12/22/24 16:25 Lipase 20 U/L (13-75) 12/22/24 16:25 Home Medications: Cariprazine HCl [Vraylar] 3 mg PO DAILY 12/22/24 Divalproex Sodium [Depakote] 500 mg PO BID 12/22/24 Pantoprazole [Protonix Tab*] 40 mg PO DAILY 12/22/24 hydrOXYzine HCL [Atarax] 50 mg PO DAILY PRN 12/22/24 Followup: Lauren Soto [Primary Care Provider] -
[2024-12-23 12:22] VITALS: BP 104/60; TEMP 97.6
--- NOTE | 2024-12-23 12:46 | CON ---
Date of Consultation: 12/22/2024 Reason For Consultation: Abdominal pain. History Of Present Illness: The patient is a 54-year-old gentleman who is complaining of abdominal p ain for 2 days prior to being admitted. He has had diarrhea and vomiting as well. He has had crampi ng abdominal pain, diffuse. No appetite. No sore throat, runny nose, cough, headaches, or dizziness . No chest pain. No fevers or chills. No blood in his stool. No dysuria or hematuria. Review of Systems: Otherwise, unremarkable. Past Medical History: Significant for bipolar disorder, diverticulitis, gastritis. Past Surgical History: No abdominal surgeries. Allergies: NO ALLERGIES. Social History: Patient does smoke. Denies drinking alcohol. Family History: Noncontributory. Physical Examination: Vital Signs: Stable. He is currently afebrile. Heart rate is in the 40s, but his blood pressure is normal. General: He is awake, alert, oriented x3. Head and Neck: Cranial nerves 2-12 grossly within normal limits. No neck masses. No JVD. Throat c lear. Neck is supple. Chest: Clear. Heart: S1, S2. Abdomen: Soft, nondistended. Positive bowel sounds. Minimal tenderness. No rebound. No rigidity. No guarding. No abdominal wall hernia appreciated. Extremities: Adequately perfused, nontender. Neuro: Nonfocal. Laboratory Data: White count on admission was 11.7, this morning 7.7, with no left shift. Electroly daniel are essentially within normal limits. CT of the abdomen and pelvis reviewed shows fluid within m ildly dilated small bowel, probably an enteritis, partial small bowel obstruction could also have thi s appearance. Bladder wall appears thickened. This could be secondary to incomplete distention or i nflammation. Otherwise, there are no other acute findings. The patient had a followup abdominal x-r ay this morning which shows residual short-segment distended loops of bowel, which may relate to impr oving obstruction or could also maybe related to colonic distention. Otherwise, there is improved pa ttern of the small bowel distention. Assessment: Partial small bowel obstruction/gastroenteritis. Recommendations: The patient can be started on clear liquids, if tolerated can be advanced and then the patient can follow up with his GI doctor after discharge. There is no need for any acute surgica l intervention at this time. Plan of care discussed with the patient as well as Dr. Harrington. JOSHUA/BERTRAM Voice ID: [id number] Report ID: [id number]
== END 2024-12-23 14:30 | disposition home or self-care (01) ==
LOC: ER 15:55 → 2ND 19:08 → INTOOBSV 19:08 → 2ND 20:41
PROVIDERS: ADMIT Family Medicine; ATTEND Internal Medicine Sleep Medicine
DX: K56.600 Partial intestinal obstruction, unspecified as to cause (principal); R11.2 Nausea with vomiting, unspecified; R19.7 Diarrhea, unspecified; R10.9 Unspecified abdominal pain; F31.9 Bipolar disorder, unspecified
CPT/HCPCS: 96365; 96361; 96368; 85025 ×2; 80048; 36415; 83690; 80053; 74177; 74018; 96375; 99285; 96366; Q9967; J2270 ×2; J2405 ×2; J0744 ×2; J7030 ×4; G0378 ×4